=== PATIENT | male | born 1955 | race Hispanic/Latino ===

== ENCOUNTER 2017-05-09 19:20 | Inpatient (IN) | payer MEDICARE, MEDICAID ==
[2017-05-09] MEDS ORDERED: Sodium Chloride 0.9% 1,000 ML IV SCH (20:00)
[2017-05-09 20:37] LABS: ADD MANUAL DIFF? NO
[2017-05-09 20:40] LABS: VENOUS BLOOD GAS BASE EXCESS 3.3 mmol/L (0.0-2.0); VENOUS BLOOD PH 7.41 (7.32-7.43)
[2017-05-09 20:45] LABS: BASO # 0.02 K/mm3 (0.0-2.0); BASO % 0.3 % (0.0-3.0); GRAN # 4.65 (1.4-6.5); GRAN % 68.6 % (50.0-68.0); HEMATOCRIT 33.5 % (42.0-52.0); LYMPH % 14.9 % (22.0-35.0); MEAN CELL VOLUME 96.5 fL (80.0-105.0); MEAN CORPUSCULAR HEMOGLOBIN 33.4 pg (25.0-35.0); MEAN CORPUSCULAR HGB CONC 34.6 g/dl (31.0-37.0); MEAN PLATELET VOLUME 9.9 fl (7.0-11.0); MONO # 1.1 (0.1-0.6); MONO % 16.2 % (1.0-6.0); PLATELET COUNT 75 10^3/uL (120.0-450.0); RED CELL DISTRIBUTION WIDTH 13.6 % (11.5-14.5); WHITE BLOOD COUNT 6.8 10^3/ul (4.5-11.0)
[2017-05-09 20:51] LABS: ALB/GLOB RATIO 0.7 (1.1-1.8); ALKALINE PHOSPHATASE 132 U/L (38-133); ALT/SGPT 41 U/L (7-56); AST/SGOT 90 U/L (15-59); BILIRUBIN,TOTAL 0.9 mg/dL (0.2-1.3); BLOOD UREA NITROGEN 18 mg/dL (7-21); CALCIUM 8.1 mg/dL (8.4-10.5); CARBON DIOXIDE 27 mmol/L (21-33); CHLORIDE 100 mmol/L (95-110); GFR AFRICAN-AMERICAN 33; GLUCOSE,RANDOM 123 mg/dL (70-110); INR 1.12 (0.93-1.08); MAGNESIUM 1.7 mg/dL (1.7-2.2); PARTIAL THROMBOPLASTIN TIME 30.3 Seconds (23.7-30.8); POTASSIUM 3.9 mmol/L (3.6-5.0); SODIUM 136 mmol/L (132-148); TOTAL PROTEIN 7.5 g/dL (5.8-8.3)
[2017-05-09 20:52] LABS: PHOSPHOROUS 1.3 mg/dL (2.5-4.5)
[2017-05-09 21:02] LABS: TROPONIN I < 0.01 ng/mL
--- NOTE | 2017-05-09 21:04 | ED PDOC ---
Arrival/HPI - General Chief Complaint: Fever Time Seen by Provider: 05/09/17 19:49 Historian: Patient - History of Present Illness Narrative History of Present Illness (Text): 05/09/17 19:50 Wesley Carroll is a 62 year old male, whose past medical history includes chronic renal failure and HIV, who presents to the Emergency department complaining of fever for past couple of days. Patient's partner reports associated periods of confusion. Patient was dialyzed yesterday and states he is dialyzed twice a week. Patient reports fever as high as 103 at home with chills. Patient states he is not confused currently. Patient is awake, alert, and denies any cough, abdominal pain, nausea, vomiting, diarrhea, urinary symptoms, back pain, neck pain, or any other complaints. Symptom Onset: Gradual Symptom Course: Unchanged Activities at Onset: Rest, Light Context: Home Past Medical History - Provider Review Nursing Documentation Reviewed: Yes - Hematological/Oncological Hx AIDS: (HIV pos only) - Psychiatric Hx Substance Use: No Family/Social History - Physician Review Nursing Documentation Reviewed: Yes Family/Social History: Unknown Family HX Smoking Status: n Hx Alcohol Use: No Hx Substance Use: No Allergies/Home Meds Allergies/Adverse Reactions: Allergies No Known Allergies Allergy (Verified 05/09/17 19:46) Review of Systems - Physician Review All systems were reviewed & negative as marked: Yes - Review of Systems Constitutional: Fevers, Other (+chills) Eyes: Normal ENT: Normal Respiratory: Normal. absent: SOB, Cough Cardiovascular: Normal. absent: Chest Pain Gastrointestinal: Normal. absent: Abdominal Pain, Diarrhea, Nausea, Vomiting Genitourinary Male: Normal. absent: Dysuria, Frequency, Hematuria, Urinary Output Changes Musculoskeletal: Normal. absent: Back Pain Skin: Normal Neurological: Other (+confusion). absent: Headache, Dizziness Endocrine: Normal Hemo/Lymphatic: Normal Psychiatric: Normal Physical Exam Vital Signs Reviewed: Yes Vital Signs Temp Pulse Resp BP Pulse Ox 05/10/17 00:30 102.3 F H 97 H 16 143/78 99 05/09/17 20:36 101 F H 05/09/17 19:41 101.1 F H 97 H 18 142/71 99 Temperature: Febrile Blood Pressure: Normal Pulse: Regular Respiratory Rate: Normal Appearance: Positive for: Well-Appearing, Non-Toxic, Comfortable Pain Distress: None Mental Status: Positive for: Alert and Oriented X 3 - Systems Exam Head: Present: Atraumatic, Normocephalic Pupils: Present: PERRL Extroacular Muscles: Present: EOMI Conjunctiva: Present: Normal Mouth: Present: Moist Mucous Membranes Neck: Present: Normal Range of Motion Respiratory/Chest: Present: Clear to Auscultation, Good Air Exchange. No: Respiratory Distress, Accessory Muscle Use Cardiovascular: Present: Regular Rate and Rhythm, Normal S1, S2. No: Murmurs Abdomen: Present: Normal Bowel Sounds. No: Tenderness, Distention, Peritoneal Signs Back: Present: Normal Inspection Upper Extremity: Present: Normal Inspection, Normal ROM, NORMAL PULSES, Other ( Left upper arm fistula noted, appears normal, no signs of infection). No: Cyanosis, Edema, Tenderness, Swelling, Erythema Lower Extremity: Present: Normal Inspection. No: Edema Neurological: Present: GCS=15, CN II-XII Intact, Speech Normal Skin: Present: Warm, Dry, Normal Color. No: Rashes Psychiatric: Present: Alert, Oriented x 3, Normal Insight, Normal Concentration Medical Decision Making ED Course and Treatment: 05/09/17 19:50 Impression: 62 year old male complaining of fever, chills, and periods of confusion over past couple of days. Plan: -- EKG -- CXR -- Labs, VBG, troponin, blood cultures -- UA, urine cultures -- IV fluids -- Tylenol -- Reassess and disposition Progress Notes: 05/09/17 22:49 Reviewed EKG, NSR at [address]-segment elevations or depressions, no T-wave inversions, normal intervals. 05/09/17 23:53 Reviewed radiology, Chest X-ray shows no acute processes. 05/10/17 00:13 Case discussed with medical aides teacher, who is aware and agrees with plan. 05/10/17 00:[address] Ramirez, who is aware and agrees with plan. Accepts pt in to hospitalist service. Pt will go to [facility] observation for fever and SIRS. - Lab Interpretations Lab Results: 05/09/17 20:28 05/09/17 20:28 Lab Results 05/09/17 20:28: Sodium 136, Chloride 100, Potassium 3.9, Carbon Dioxide 27, Anion Gap 13, BUN 18, Creatinine 2.4 H, Est GFR ( Amer) 33, Est GFR (Non- Af Amer) 28, Random Glucose 123 H, Calcium 8.1 L, Phosphorus 1.3 L*, Magnesium 1.7, Total Bilirubin 0.9, AST 90 H, ALT 41, Alkaline Phosphatase 132, Troponin I < 0.01, Total Protein 7.5, Albumin 3.1, Globulin 4.5, Albumin/Globulin Ratio 0.7 L 05/09/17 20:28: pO2 36, VBG pH 7.41, VBG pCO2 45.0, VBG HCO3 28.5 H, VBG Total CO2 29.9 H, VBG O2 Sat (Calc) 73.3 H, VBG Base Excess 3.3 H, VBG Potassium 3.9, Sodium 136.0, Chloride 102.0, Glucose 129 H, Lactate 1.2, FiO2 21.0, Venous Blood Potassium 3.9 05/09/17 20:28: PT 12.1 H, INR 1.12 H, APTT 30.3 05/09/17 20:28: WBC 6.8, RBC 3.47 L, Hgb 11.6 L, Hct 33.5 L, MCV 96.5, MCH 33.4 , MCHC 34.6, RDW 13.6, Plt Count 75 L, MPV 9.9, Gran % 68.6 H, Lymph % (Auto) 14.9 L, Edgar % (Auto) 16.2 H, Eos % (Auto) 0.0 L, Baso % (Auto) 0.3, Gran # 4.65 , Lymph # 1.0 L, Edgar # 1.1 H, Eos # 0.0, Baso # 0.02 - RAD Interpretation Radiology Orders: 05/09/17 19:50 CHEST PORTABLE [RAD] Stat - Medication Orders Current Medication Orders: Acetaminophen (Tylenol 325mg Tab) 650 mg PO STAT STA Stop: 05/10/17 00:42 Sodium Chloride (Sodium Chloride 0.9%) 1,000 mls @ 150 mls/hr IV .[id number] [facility] Last Admin: 05/09/17 20:36 Dose: 150 mls/hr Discontinued Medications Acetaminophen (Tylenol 325mg Tab) 650 mg PO STAT STA Stop: 05/09/17 19:53 Last Admin: 05/09/17 20:36 Dose: 650 mg Acetaminophen (Tylenol 325mg Tab) Confirm Administered Dose 650 mg .ROUTE .STK- MED ONE Stop: 05/10/17 00:42 Vancomycin HCl (Vancomycin 1gm) 1 gm in 250 mls @ 133.333 mls/hr IVPB STAT STA PRN Reason: Protocol Stop: 05/09/17 23:53 Last Admin: 05/09/17 23:42 Dose: 133.333 mls/hr Potassium Phos/Sodium Phos (Neutra-Phos) 1 pkt PO ONCE ONE Stop: 05/09/17 21:25 Last Admin: 05/09/17 23:42 Dose: 1 pkt - Scribe Statement The provider has reviewed the documentation as recorded by the Scribjuan Salas All medical record entries made by the Scribe were at my direction and personally dictated by me. I have reviewed the chart and agree that the record accurately reflects my personal performance of the history, physical exam, medical decision making, and the department course for this patient. I have also personally directed, reviewed, and agree with the discharge instructions and disposition. Disposition/Present on Arrival - Present on Arrival Any Indicators Present on Arrival: No History of DVT/PE: No History of Uncontrolled Diabetes: No Urinary Catheter: No History of Decub. Ulcer: No History Surgical Site Infection Following: None - Disposition Have Diagnosis and Disposition been Completed?: Yes Diagnosis: ESRD (end stage renal disease), Fever, SIRS (systemic inflammatory response syndrome) Disposition: HOSPITALIZED Disposition Time: 00:12 Patient Plan: Observation Patient Problems: Current Active Problems Problem Status Onset ESRD (end stage renal disease) Acute Fever Acute SIRS (systemic inflammatory response syndrome) Acute Condition: GOOD Referrals: Aldo Spencer MD [Primary Care Provider] - Follow up with primary Forms: [employer] (Swedish)
[2017-05-09] MEDS ORDERED: Potassium & Sodium Phosphate PO ONE (21:24)
[2017-05-09] MEDS ORDERED: Vancomycin 1gm in NS 250ml 1 GM/250 ML BAG IVPB STA (22:01)
[2017-05-10] MEDS ORDERED: Potassium Phosphate 15 MMOLE in Sodium Chloride 0.9% 250 ML IVPB ONE ×2 (01:25→18:45)
[2017-05-10] MEDS ORDERED: Sodium Chloride 0.9% 1,000 ML IV SCH (01:30)
--- NOTE | 2017-05-10 02:00 | CP.PCM.HP ---
<REZA BURCH - Last Filed: 05/10/17 01:55> History of Present Illness - History of Present Illness History of Present Illness: Pt is a 62 yo M with PMHx of ESRD on HD (,) and HIV presents with cc of fever for the last 4 days. Pt states that his temperature has ranged between 101 and 103 F at home. Pt also c/o nausea, vomiting x2, diarrhea, and chills. Pt has not been able to tolerate diet for the last 2 days. Pt denied any tarry stools or hematochezia. Pt states that on Sunday he had a near syncopal episode. He states that he had a witnessed fall, in which he fell on his knees and elbow, but did not sustain head trauma or seizure. Pt denies any past history in which he lost consciousness. Pt admits that the day of the near syncopal episode he felt dehydrated and fatigued from being ill. Pt denied any recent travel or sick contacts. Pt denied dizziness, ear pain, sore throat, congestion, sinus pain, cough, CP, SOB, weakness, abdominal pain, constipation, dysuria, hematuria, or any skin lesions/rashes. Pt states that he is compliant with all of his medications and follows up regularly with PMD. PMHx: ESRD on HD (, ), HIV Surg: AV fistula left forearm FHx: AR All: NKDA SH: Occasional EtOH, Denied tobacco or illicit drug use Medications: Reviewed and as per chart Present on Admission - Present on Admission Any Indicators Present on Admission: No Review of Systems - Review of Systems All systems: reviewed and no additional remarkable complaints except - Constitutional Constitutional: Chills, Fatigue, Fever. absent: Headache, Night Sweats, Weight Gain, Weight Loss - EENT Eyes: absent: Blurred Vision, Change in Vision Ears: absent: Ear Discharge, Ear Pain, Tinnitus Nose/Mouth/Throat: absent: Nasal Congestion, Nasal Discharge, Dysphagia, Sore Throat, Throat Swelling, Tongue Swelling - Cardiovascular Cardiovascular: Rapid Heart Rate. absent: Chest Pain, Edema, Orthopnea, Palpitations - Respiratory Respiratory: absent: Dyspnea, Chest Congestion - Gastrointestinal Gastrointestinal: Diarrhea, Loose Stools, Nausea, Vomiting. absent: Abdominal Pain, Hematemesis, Hematochezia, Melena - Genitourinary Genitourinary: absent: Dysuria, Hematuria, Pyuria - Musculoskeletal Musculoskeletal: absent: Arthralgias, Joint Swelling, Muscle Weakness, Myalgias , Numbness - Integumentary Integumentary: Dry Skin. absent: Erythema, Rash, Swelling, Jaundice - Neurological Neurological: absent: Dizziness, Numbness, Focal Weakness, Headaches, Paresthesias - Psychiatric Psychiatric: absent: Confusion - Endocrine Endocrine: absent: Cold Intolorance, Excessive Sweating, Heat Intolorance, Polydipsia, Polyphagia, Polyuria - Hematologic/Lymphatic Hematologic: absent: Easy Bleeding, Easy Bruising, Lymphadenopathy Past Patient History - Past Social History Smoking Status: n - HEMATOLOGICAL/ONCOLOGICAL Hx AIDS: (HIV pos only) - PSYCHIATRIC Hx Substance Use: No Meds Allergies/Adverse Reactions: Allergies Allergy/AdvReac Type Severity Reaction Status Date / Time No Known Allergies Allergy Verified 05/09/17 19:46 Physical Exam - Constitutional Appears: No Acute Distress - Head Exam Head Exam: ATRAUMATIC, NORMOCEPHALIC - Eye Exam Eye Exam: EOMI, PERRL - ENT Exam ENT Exam: Mucous Membranes Moist, Normal External Ear Exam, Normal Oropharynx Additional comments: Negative Power-Hallpike test - Neck Exam Neck exam: Positive for: Full Rom. Negative for: Lymphadenopathy, Tenderness, Thyromegaly Additional comments: No carotid bruits b/l - Respiratory Exam Respiratory Exam: Clear to Auscultation Bilateral. absent: Rales, Rhonchi, Wheezes - Cardiovascular Exam Cardiovascular Exam: Tachycardia, REGULAR RHYTHM, +S1, +S2. absent: Diastolic murmur, Gallop, Rubs, Systolic Murmur - GI/Abdominal Exam GI & Abdominal Exam: Soft. absent: Distended, Guarding, Rebound, Tenderness - Extremities Exam Extremities exam: Positive for: full ROM. Negative for: joint swelling, pedal edema, tenderness Additional comments: Left forearm AV fistula with palpable thrill and audible bruits - Neurological Exam Neurological exam: Alert, CN II-XII Intact, Oriented x3 - Psychiatric Exam Psychiatric exam: Normal Affect, Normal Mood - Skin Skin Exam: Dry, Intact, Normal Color, Warm Results - Vital Signs Recent Vital Signs: Last Vital Signs Temp 100.7 F H 05/10/17 01:34 Pulse 109 H 05/10/17 01:34 Resp 18 05/10/17 01:34 BP 127/89 05/10/17 01:34 Pulse Ox 98 05/10/17 01:34 - Labs Result Diagrams: 05/09/17 20:28 05/09/17 20:28 Assessment & Plan - Assessment and Plan (Free Text) Assessment: 62 yo M with PMHx of ESRD on HD and HIV will be admitted for evaluation and treatment for Fever of unknown origin. 1. Febrile Illness - ID consulted - Vancomycin given in ED - F/u blood and urine cultures - F/u flu swab - F/u c. diff study - F/u TSH - F/u Hepatitis panel - NPO on NS@125, advance diet as tolerated - EKG showed tachycardia otherwise NSR - CXR showed no acute disease - UA unremarkable - Tylenol prn for fever 2. Hypophosphatemia - Phos 1.3, repleted with Neutra-phos - Trend Phos, replete as necessary 3. HIV - Cont home meds: Sustiva, Emtriva, Viread 4. ESRD - Cont HD, Tues and Thurs - Avoid nephrotoxic medications 5. GI/DVT PPx - Protonix - SCDs Pt was seen and discussed in detail with Dr. Ramirez. <Papito Ramirez - Last Filed: 05/10/17 03:19> Results - Vital Signs Recent Vital Signs: Last Vital Signs Temp 99.8 F H 05/10/17 02:08 Pulse 95 H 05/10/17 02:08 Resp 18 05/10/17 02:08 BP 126/78 05/10/17 02:08 Pulse Ox 98 05/10/17 01:57 - Labs Result Diagrams: 05/09/17 20:28 05/09/17 20:28 Labs: Laboratory Results - last 24 hr 05/10/17 01:15 Urine Color Yellow Urine Appearance Sl cloudy Urine pH 8.0 Ur Specific [place] 1.015 Urine Protein 100 H Urine Glucose (UA) Negative Urine Ketones Trace H Urine Blood Small H Urine Nitrate Negative Urine Bilirubin Negative Urine Urobilinogen 2.0 H Ur Leukocyte Esterase Negative Urine RBC 1 - 3 Urine WBC 0 - 2 Ur Epithelial Cells 1 - 3 Urine Bacteria Rare Attending/Attestation - Attestation I have personally seen and examined this patient.: Yes I have fully participated in the care of the patient.: Yes I have reviewed all pertinent clinical information: Yes Notes (Text): 05/10/17 03:18 Agree with history , physical examination , assessment and plan.Patient was seen when he was in the ER in Room # 9.
[2017-05-10 02:02] LABS: URINE BILIRUBIN NEGATIVE (NEGATIVE); URINE BLOOD SMALL (NEGATIVE); URINE GLUCOSE (UA) NEGATIVE (NEGATIVE); URINE KETONE TRACE mg/dL (NEGATIVE); URINE LEUKOCYTE ESTERASE NEGATIVE Leu/uL (NEGATIVE); URINE PROTEIN 100 mg/dL (<30 mg/dL)
[2017-05-10 02:05] LABS: URINE APPEARANCE SL CLOUDY (CLEAR); URINE COLOR YELLOW (YELLOW)
[2017-05-10 02:15] LABS: URINE BACTERIA RARE (NEG); URINE WBC 0 - 2 /hpf (0-6)
[2017-05-10 02:26] VITALS: BMI 25.3
[2017-05-10] MEDS ORDERED: TDAP Vaccine 0.5 mL Syr IM ONE (05:58)
--- NOTE | 2017-05-10 05:59 | CP.PCM.PN ---
<REZA BURCH - Last Filed: 05/10/17 05:55> Subjective - Date & Time of Evaluation Date of Evaluation: 05/10/17 Time of Evaluation: 05:56 - Subjective Subjective: SENIOR CLINICAL DATA COORDINATOR note: Code star was called at 5:43. Per nurse patient was trying to go to the bathroom when fall occurred. The fall was not witnessed. Pt was found have a contusion and laceration to the right frontal region of his head. Pt was awake, but was confused and not responsive to questioning. Pt will be sent for stat CT head scan. Vitals T 99.7, HR 114, BP 146/93, O2 93%, Glucose 129 Objective - Vital Signs/Intake and Output Vital Signs (last 24 hours): Temp Pulse Resp BP Pulse Ox 99.8 F H 95 H 18 126/78 98 05/10/17 02:08 05/10/17 02:08 05/10/17 02:08 05/10/17 02:08 05/10/17 01:57 - Medications Medications: Current Medications Acetaminophen (Tylenol 325mg Tab) 650 mg PO Q6H PRN PRN Reason: Fever >100.4 F Efavirenz (Sustiva) 600 mg PO HS [facility] Sodium Chloride (Sodium Chloride 0.9%) 1,000 mls @ 150 mls/hr IV .Q6H40M [facility] Last Admin: 05/09/17 20:36 Dose: 150 mls/hr Sodium Chloride (Sodium Chloride 0.9%) 1,000 mls @ 125 mls/hr IV .Q8H [facility] Last Admin: 05/10/17 01:41 Dose: 125 mls/hr Non-Formulary Medication (Emtricitabine [Emtriva]) 200 mg PO 2XW [facility] Pantoprazole Sodium (Protonix Inj) 40 mg IVP DAILY [facility] Tenofovir Disoproxil Fumarate (Viread) 300 mg PO MON [facility] - Labs Labs: PT 12.1 Seconds (9.9-11.8) H 05/09/17 20:28 INR 1.12 (0.93-1.08) H 05/09/17 20:28 APTT 30.3 Seconds (23.7-30.8) 05/09/17 20:28 - Constitutional Appears: Confused - Head Exam Head Exam: NORMOCEPHALIC. absent: ATRAUMATIC Additional comments: Contusion and laceration to right frontal region - Eye Exam Eye Exam: EOMI, PERRL - ENT Exam ENT Exam: Mucous Membranes Dry - Neck Exam Neck Exam: Full ROM. absent: Lymphadenopathy, Thyromegaly - Respiratory Exam Respiratory Exam: Clear to Ausculation Bilateral. absent: Rales, Rhonchi, Wheezes - Cardiovascular Exam Cardiovascular Exam: RRR, +S1, +S2. absent: Gallop, Rubs, Murmur - GI/Abdominal Exam GI & Abdominal Exam: Soft. absent: Guarding, Tenderness, Organomegaly, Rebound - Neurological Exam Neurological Exam: Altered, Awake. absent: Oriented x3 - Skin Skin Exam: Abrasion, Dry, Normal Color, Warm Assessment and Plan - Assessment and Plan (Free Text) Assessment: 62 yo M with PMHx ESRD on HD and HIV had code star called for unwitnessed fall in bathroom. Pt hit head. 1. Fall - Head CT - Troponin - EKG Pt seen and discussed in detail with Dr. Ramirez. <Papito Ramirez - Last Filed: 05/10/17 10:19> Objective - Vital Signs/Intake and Output Vital Signs (last 24 hours): Temp Pulse Resp BP Pulse Ox 103.3 F H 112 H 18 153/93 H 98 05/10/17 08:49 05/10/17 08:49 05/10/17 08:49 05/10/17 08:49 05/10/17 08:49 Intake and Output: 05/10/17 05/10/17 06:59 18:59 Intake Total 0 Balance 0 - Medications Medications: Current Medications Acetaminophen (Tylenol 325mg Tab) 650 mg PO Q6H PRN PRN Reason: Fever >100.4 F Last Admin: 05/10/17 08:00 Dose: 650 mg Efavirenz (Sustiva) 600 mg PO HS [facility] Folic Acid (Folic Acid) 1 mg PO DAILY [facility] Sodium Chloride (Sodium Chloride 0.9%) 1,000 mls @ 70 mls/hr IV .[id number] [facility] Non-Formulary Medication (Emtricitabine [Emtriva]) 200 mg PO MoWe [facility] Pantoprazole Sodium (Protonix Inj) 40 mg IVP DAILY [facility] Tenofovir Disoproxil Fumarate (Viread) 300 mg PO MON [facility] Thiamine HCl (Vitamin B1 Tab) 50 mg PO DAILY [facility] - Labs Labs: PT 12.1 Seconds (9.9-11.8) H 05/09/17 20:28 INR 1.12 (0.93-1.08) H 05/09/17 20:28 APTT 30.3 Seconds (23.7-30.8) 05/09/17 20:28 Attending/Attestation - Attestation I have personally seen and examined this patient.: Yes I have fully participated in the care of the patient.: Yes I have reviewed all pertinent clinical information, including history, physical exam and plan: Yes
--- NOTE | 2017-05-10 07:02 | CT ---
EXAM: CT Head Without Intravenous Contrast CLINICAL HISTORY: 62 years old, male; Injury or trauma; Fall; Initial encounter; Concussion / head injury; Additional info: Code star, fall TECHNIQUE: Axial computed tomography images of the head/brain without intravenous contrast. This CT exam was performed using one or more of the following dose reduction techniques: automated exposure control, adjustment of the mA and/or kV according to patient size, and/or use of iterative reconstruction technique. EXAM DATE/TIME: 05/10/2017 5:48 AM COMPARISON: No relevant prior studies available. FINDINGS: Patient motion is present limiting exam. There is subcutaneous soft tissue swelling in the right frontal region. Atrophy and chronic small vessel ischemic disease. No intracranial hemorrhage. No intracranial edema. Trace mucosal thickening ethmoid sinuses. No depressed fractures. IMPRESSION: No acute intracranial injury.
[2017-05-10] MEDS ORDERED: Piperacillin/Tazobact 2.25gm 2.25 GM/100 ML BAG IVPB STA (08:17)
[2017-05-10 08:36] LABS: VENOUS BLOOD GAS BASE EXCESS 0.4 mmol/L (0.0-2.0); VENOUS BLOOD PH 7.51 (7.32-7.43)
--- NOTE | 2017-05-10 08:53 | PCM.RRTMUL ---
LUBRICATING ENGINEER Nurse Assessment - Vital Signs Blood Pressure:: 167/99 Pulse Rate:: 94 Respiratory Rate:: 20 Temperature:: 99.7 F
--- NOTE | 2017-05-10 09:28 | CP.PCM.PN ---
Subjective - Date & Time of Evaluation Date of Evaluation: 05/10/17 Time of Evaluation: 08:00 - Subjective Subjective: RAPID RESPONSE NOTE: Rapid Response was called for Wesley Carroll at 0800 on 05/10/2017 for altered mental status. 62 year old male with PMH of HIV and ESRD on HD who was admitted with fever and diarrhea was found to have an acute change in mental status by member of medicine team. Patient was noted to be alert and oriented to person, place, time and event prior to becoming confused and agitated. A stat fingerstick glucose and oral temperature were taken. Fingerstick glucose was found to be 148 and temperature was 103 degrees fahrenheit. 650mg of acetaminophen and cooling blankets were ordered. Blood pressure was 178/111 and pulse was 128 on presentation. A code sepsis was then called on this patient and patient was given a 500ml normal saline and started on Zosyn. A venous blood gas/shock panel was drawn and lactate was found to be 1.2. Objective - Vital Signs/Intake and Output Vital Signs (last 24 hours): Temp Pulse Resp BP Pulse Ox 103.3 F H 112 H 18 153/93 H 98 05/10/17 08:49 05/10/17 08:49 05/10/17 08:49 05/10/17 08:49 05/10/17 08:49 Intake and Output: 05/10/17 05/10/17 06:59 18:59 Intake Total 0 Balance 0 - Medications Medications: Current Medications Acetaminophen (Tylenol 325mg Tab) 650 mg PO Q6H PRN PRN Reason: Fever >100.4 F Last Admin: 05/10/17 08:00 Dose: 650 mg Efavirenz (Sustiva) 600 mg PO HS [facility] Folic Acid (Folic Acid) 1 mg PO DAILY [facility] Sodium Chloride (Sodium Chloride 0.9%) 1,000 mls @ 70 mls/hr IV .[id number] [facility] Piperacillin Sod/Tazobactam Sod (Zosyn 2.25 Gm In 0.9% 100 Ml) 2.25 gm in 100 mls @ 100 mls/hr IVPB STAT STA PRN Reason: Protocol Stop: 05/10/17 09:16 Last Admin: 05/10/17 08:30 Dose: 100 mls/hr Non-Formulary Medication (Emtricitabine [Emtriva]) 200 mg PO MoWe [facility] Pantoprazole Sodium (Protonix Inj) 40 mg IVP DAILY [facility] Tenofovir Disoproxil Fumarate (Viread) 300 mg PO MON [facility] Thiamine HCl (Vitamin B1 Tab) 50 mg PO DAILY [facility] - Labs Labs: PT 12.1 Seconds (9.9-11.8) H 05/09/17 20:28 INR 1.12 (0.93-1.08) H 05/09/17 20:28 APTT 30.3 Seconds (23.7-30.8) 05/09/17 20:28 - Constitutional Appears: In Acute Distress - Neck Exam Neck Exam: Full ROM - Respiratory Exam Respiratory Exam: absent: Rhonchi, Wheezes, Respiratory Distress - Cardiovascular Exam Cardiovascular Exam: Tachycardia - GI/Abdominal Exam GI & Abdominal Exam: absent: Tenderness - Extremities Exam Extremities Exam: Normal Capillary Refill. absent: Pedal Edema - Neurological Exam Neurological Exam: Altered - Psychiatric Exam Psychiatric exam: Agitated, Anxious - Skin Skin Exam: Diaphoretic, Warm Assessment and Plan - Assessment and Plan (Free Text) Plan: 1. Sepsis with unknown source -cont zosyn -cont acetaminophen PRN and cooling blankets PRN for temperatures above 100 degrees Fahrenheit -f/u cultures -lacate 1.2 2. Agitation -PRN ativan
--- NOTE | 2017-05-10 09:33 | PCM.SEPTIC ---
Sepsis Progress Note - Reassessment Type Date of Evaluation: 05/10/17 Time of Evaluation: 08:13 Reassessment Type: Non-invasive reassessment - Non Invasive Reassessment Were the most recent vital sign reviewed: Yes Vital Sign (Latest): Temp Pulse Resp BP Pulse Ox 103.3 F H 112 H 18 153/93 H 98 05/10/17 08:49 05/10/17 08:49 05/10/17 08:49 05/10/17 08:49 05/10/17 08:49 Cardiovascular: Yes: Tachycardia Respiratory: Yes: Normal Breath Sounds. No: Accessory Muscle Use, Rales, Rhonchi, Stridor Capillary Refill: Normal (Less than 2 sec) Skin: Warm, Diaphoretic
[2017-05-10] MEDS ORDERED: Home Med 1 UNIT PO SCH (10:00)
--- NOTE | 2017-05-10 10:37 | RAD ---
HISTORY: Sepsis Patient COMPARISON: No prior. FINDINGS: LUNGS: No active pulmonary disease. PLEURA: No significant pleural effusion identified, no pneumothorax apparent. CARDIOVASCULAR: Normal. OSSEOUS STRUCTURES: No significant abnormalities. VISUALIZED UPPER ABDOMEN: Normal. OTHER FINDINGS: None. IMPRESSION: No active disease.
--- NOTE | 2017-05-10 11:02 | CARD ---
APPROVED REPORT EKG Measurement Heart [id number] [place] [id number] <Conclusion> Sinus tachycardia Nonspecific ST abnormality Abnormal ECG
--- NOTE | 2017-05-10 11:07 | CARD ---
APPROVED REPORT EKG Measurement Heart [id number] [place] [id number] <Conclusion> Normal sinus rhythm Normal ECG
[2017-05-10] MEDS: Sodium Chloride 0.9% 1,000 ML IV SCH (12:16)
[2017-05-10 17:11] LABS: ADD MANUAL DIFF? NO
[2017-05-10 17:30] LABS: BASO # 0.02 K/mm3 (0.0-2.0); BASO % 0.3 % (0.0-3.0); GRAN # 5.97 (1.4-6.5); GRAN % 77.5 % (50.0-68.0); HEMATOCRIT 30.6 % (42.0-52.0); LYMPH # 0.6 (1.2-3.4); LYMPH % 7.2 % (22.0-35.0); MEAN CELL VOLUME 94.4 fL (80.0-105.0); MEAN CORPUSCULAR HEMOGLOBIN 33.6 pg (25.0-35.0); MEAN CORPUSCULAR HGB CONC 35.6 g/dl (31.0-37.0); MEAN PLATELET VOLUME 9.7 fl (7.0-11.0); MONO # 1.2 (0.1-0.6); PLATELET COUNT 82 10^3/uL (120.0-450.0); RED CELL DISTRIBUTION WIDTH 13.5 % (11.5-14.5); WHITE BLOOD COUNT 7.7 10^3/ul (4.5-11.0)
[2017-05-10 17:40] LABS: ALB/GLOB RATIO 0.7 (1.1-1.8); BILIRUBIN,TOTAL 1.2 mg/dL (0.2-1.3); CALCIUM 7.6 mg/dL (8.4-10.5); MAGNESIUM 1.4 mg/dL (1.7-2.2); TOTAL PROTEIN 7.3 g/dL (5.8-8.3)
[2017-05-10 17:54] LABS: POTASSIUM 2.8 mmol/L (3.6-5.0)
[2017-05-10] MEDS ORDERED: Potassium Phosphate 3 mmol/ml Inj IV STA (18:32)
--- NOTE | 2017-05-10 19:44 | PCM.SEPTIC ---
Sepsis Progress Note - Reassessment Type Date of Evaluation: 05/10/17 Time of Evaluation: 14:15 Reassessment Type: Non-invasive reassessment - Non Invasive Reassessment Were the most recent vital sign reviewed: Yes Vital Sign (Latest): Temp Pulse Resp BP Pulse Ox 96.3 F L 116 H 20 164/99 H 98 05/10/17 17:23 05/10/17 17:23 05/10/17 17:23 05/10/17 17:23 05/10/17 08:49 Cardiovascular: Yes: Tachycardia. No: JVD, Murmur, Irregularly Irregular Respiratory: Yes: Normal Breath Sounds. No: Crackles, Rales, Rhonchi Capillary Refill: Normal (Less than 2 sec) Skin: Warm, Dry
[2017-05-10] MEDS ORDERED: Magnesium Sulfate 2 GM in Sodium Chloride 0.9% 100 ML IVPB ONE (20:02)
--- NOTE | 2017-05-10 20:14 | CP.PCM.CON ---
History of Present Illness - History of Present Illness History of Present Illness: pt is seen and examined during dialysis s/p Hd x2 hrs pt pulled out needles x1 and after 2 hrs he was restless, got out of bed and try to pull needles and want to stand and void + loose bm on the floor 1. sepsis 2. ESRD 3. HIV 4. Hept.c 5. Hypokalemia 6. Hypomagnesemia 7. Hypophosphatemia supplement mg 2gm ivpb, repeat bmp, mg, po4, cpk supplement k+, po4 as needed check 24 hr up,cr,cr cl,u/s kidneys consider LP to r/o meningitis, consider neurology consult c/w iv abx, stool c.diff u/s kidneys for size consider gentle iv hydration, consider echo for lvef full consult is dictated # [id number] Past Patient History - Past Social History Smoking Status: n - RENAL Hx Chronic Kidney Disease: Yes Hx Dialysis: Yes Date of Last Dialysis Treatment: 05/08/17 Hx Renal Failure: Yes - HEMATOLOGICAL/ONCOLOGICAL Hx AIDS: (HIV pos only) - MUSCULOSKELETAL/RHEUMATOLOGICAL Hx Arthritis: Yes Hx Back Pain: Yes Hx Falls: Yes - GENITOURINARY/GYNECOLOGICAL Hx Sexually Transmitted Disorders: Yes Hx Urinary Tract Infection: Yes - PSYCHIATRIC Hx Substance Use: No - SURGICAL HISTORY Hx Surgeries: Yes Meds Allergies/Adverse Reactions: Allergies Allergy/AdvReac Type Severity Reaction Status Date / Time No Known Allergies Allergy Verified 05/09/17 19:46 - Medications Medications: Current Medications Acetaminophen (Tylenol 325mg Tab) 650 mg PO Q6H PRN PRN Reason: Fever >100.4 F Last Admin: 05/10/17 15:56 Dose: 650 mg Efavirenz (Sustiva) 600 mg PO [facility] Folic Acid (Folic Acid) 1 mg PO DAILY [facility] Last Admin: 05/10/17 10:17 Dose: 1 mg Sodium Chloride (Sodium Chloride 0.9%) 1,000 mls @ 70 mls/hr IV .[id number] [facility] Last Admin: 05/10/17 12:16 Dose: 70 mls/hr Potassium Phosphate 15 mmole/ (Sodium Chloride) 255 mls @ 42.5 mls/hr IVPB ONCE ONE Stop: 05/11/17 00:44 Magnesium Sulfate 2 gm/ Sodium (Chloride) 104 mls @ 102 mls/hr IVPB ONCE ONE Stop: 05/10/17 21:03 Lorazepam (Ativan) 0.5 mg PO Q4 [facility] PRN Reason: Protocol Last Admin: 05/10/17 17:02 Dose: Not Given Non-Formulary Medication (Emtricitabine [Emtriva]) 200 mg PO MoWe [facility] Pantoprazole Sodium (Protonix Inj) 40 mg IVP DAILY [facility] Last Admin: 05/10/17 10:17 Dose: 40 mg Tenofovir Disoproxil Fumarate (Viread) 300 mg PO MON [facility] Thiamine HCl (Vitamin B1 Tab) 50 mg PO DAILY [facility] Last Admin: 05/10/17 10:17 Dose: 50 mg Results - Vital Signs Recent Vital Signs: Last Vital Signs Temp 96.3 F L 05/10/17 17:23 Pulse 116 H 05/10/17 17:23 Resp 20 05/10/17 17:23 BP 164/99 H 05/10/17 17:23 Pulse Ox 98 05/10/17 08:49 - Labs Result Diagrams: 05/10/17 17:00 05/10/17 20:00 Labs: Laboratory Results - last 24 hr 05/10/17 05/10/17 17:00 17:00 WBC 7.7 RBC 3.24 L Hgb 10.9 L Hct 30.6 L MCV 94.4 MCH 33.6 MCHC 35.6 RDW 13.5 Plt Count 82 L MPV 9.7 Gran % 77.5 H Lymph % (Auto) 7.2 L [place] % (Auto) 15.0 H Eos % (Auto) 0.0 L Baso % (Auto) 0.3 Gran # 5.97 Lymph # 0.6 L [place] # 1.2 H Eos # 0.0 Baso # 0.02 Sodium 134 Potassium 2.8 L* D Chloride 104 Carbon Dioxide 18 L Anion Gap 15 BUN 20 Creatinine 2.3 H Est GFR ( Amer) 35 Est GFR (Non-Af Amer) 29 Random Glucose 133 H Calcium 7.6 L Phosphorus 1.0 L* Magnesium 1.4 L Total Bilirubin 1.2 AST 87 H ALT 37 Alkaline Phosphatase 117 Total Protein 7.3 Albumin 3.0 Globulin 4.2 Albumin/Globulin Ratio 0.7 L
[2017-05-10 20:27] LABS: CALCIUM 8.6 mg/dL (8.4-10.5); MAGNESIUM 1.6 mg/dL (1.7-2.2); PHOSPHOROUS 1.7 mg/dL (2.5-4.5); POTASSIUM 3.3 mmol/L (3.6-5.0)
--- NOTE | 2017-05-10 20:39 | CP.PCM.CON ---
History of Present Illness - History of Present Illness History of Present Illness: Infectious Disease Consultation: May 10, 2017 62 yo male presenting with fevers for the past 4 days prior to hospitalization. Temperature was as high as 103.0 F. He had a near syncopal episode on Sunday. The patient was ESRD on HD and a history of HIV on HAART medications. No new issues. PMHx: ESRD on HD HIV PSHx: AV fistula left forearm Allergies: NKDA Social Hx: Social EtOH, No tobacco, No illicit drug use. Active Medications Acetaminophen (Tylenol 325mg Tab) 650 mg PO Q6H PRN PRN Reason: Fever >100.4 F Last Admin: 05/10/17 15:56 Dose: 650 mg Efavirenz (Sustiva) 600 mg PO HS [facility] Folic Acid (Folic Acid) 1 mg PO DAILY [facility] Last Admin: 05/10/17 10:17 Dose: 1 mg Sodium Chloride (Sodium Chloride 0.9%) 1,000 mls @ 70 mls/hr IV .[id number] [facility] Last Admin: 05/10/17 12:16 Dose: 70 mls/hr Potassium Phosphate 15 mmole/ (Sodium Chloride) 255 mls @ 42.5 mls/hr IVPB ONCE ONE Stop: 05/11/17 00:44 Magnesium Sulfate 2 gm/ Sodium (Chloride) 104 mls @ 102 mls/hr IVPB ONCE ONE Stop: 05/10/17 21:03 Lorazepam (Ativan) 0.5 mg PO Q4 [facility] PRN Reason: Protocol Last Admin: 05/10/17 17:02 Dose: Not Given Non-Formulary Medication (Emtricitabine [Emtriva]) 200 mg PO MoWe [facility] Pantoprazole Sodium (Protonix Inj) 40 mg IVP DAILY [facility] Last Admin: 05/10/17 10:17 Dose: 40 mg Tenofovir Disoproxil Fumarate (Viread) 300 mg PO MON [facility] Thiamine HCl (Vitamin B1 Tab) 50 mg PO DAILY [facility] Last Admin: 05/10/17 10:17 Dose: 50 mg Family Hx: History of IA in the family ROS: Fevers at home. nausea, vomiting, diarrhea, and chills. No chest pain, abdominal pain, melena, hematuria, hematemesis, hematochezia, depression, anxiety. Past Patient History - Past Social History Smoking Status: n - RENAL Hx Chronic Kidney Disease: Yes Hx Dialysis: Yes Date of Last Dialysis Treatment: 05/08/17 Hx Renal Failure: Yes - HEMATOLOGICAL/ONCOLOGICAL Hx AIDS: (HIV pos only) - MUSCULOSKELETAL/RHEUMATOLOGICAL Hx Arthritis: Yes Hx Back Pain: Yes Hx Falls: Yes - GENITOURINARY/GYNECOLOGICAL Hx Sexually Transmitted Disorders: Yes Hx Urinary Tract Infection: Yes - PSYCHIATRIC Hx Substance Use: No - SURGICAL HISTORY Hx Surgeries: Yes Meds Allergies/Adverse Reactions: Allergies Allergy/AdvReac Type Severity Reaction Status Date / Time No Known Allergies Allergy Verified 05/09/17 19:46 - Medications Medications: Current Medications Acetaminophen (Tylenol 325mg Tab) 650 mg PO Q6H PRN PRN Reason: Fever >100.4 F Last Admin: 05/10/17 15:56 Dose: 650 mg Efavirenz (Sustiva) 600 mg PO HS [facility] Folic Acid (Folic Acid) 1 mg PO DAILY [facility] Last Admin: 05/10/17 10:17 Dose: 1 mg Sodium Chloride (Sodium Chloride 0.9%) 1,000 mls @ 70 mls/hr IV .[id number] [facility] Last Admin: 05/10/17 12:16 Dose: 70 mls/hr Potassium Phosphate 15 mmole/ (Sodium Chloride) 255 mls @ 42.5 mls/hr IVPB ONCE ONE Stop: 05/11/17 00:44 Lorazepam (Ativan) 0.5 mg PO Q4 [facility] PRN Reason: Protocol Last Admin: 05/10/17 17:02 Dose: Not Given Non-Formulary Medication (Emtricitabine [Emtriva]) 200 mg PO MoWe [facility] Pantoprazole Sodium (Protonix Inj) 40 mg IVP DAILY [facility] Last Admin: 05/10/17 10:17 Dose: 40 mg Tenofovir Disoproxil Fumarate (Viread) 300 mg PO MON [facility] Thiamine HCl (Vitamin B1 Tab) 50 mg PO DAILY [facility] Last Admin: 05/10/17 10:17 Dose: 50 mg Physical Exam - Constitutional Appears: Non-toxic, No Acute Distress - Head Exam Head Exam: ATRAUMATIC, NORMOCEPHALIC - Eye Exam Eye Exam: EOMI, PERRL Pupil Exam: NORMAL ACCOMODATION, PERRL - ENT Exam ENT Exam: Mucous Membranes Moist, Normal External Ear Exam, TM's Normal Bilaterally - Neck Exam Neck exam: Positive for: Full Rom, Normal Inspection - Respiratory Exam Respiratory Exam: Clear to Auscultation Bilateral, NORMAL BREATHING PATTERN. absent: Rales, Rhonchi, Wheezes - Cardiovascular Exam Cardiovascular Exam: Tachycardia, +S1, +S2 - GI/Abdominal Exam GI & Abdominal Exam: Normal Bowel Sounds, Soft. absent: Distended, Tenderness - Extremities Exam Extremities exam: Positive for: full ROM, normal inspection Additional comments: Left forearm AV fistula with palpable thrill and audible bruits - Neurological Exam Neurological exam: Alert, CN II-XII Intact, Oriented x3 - Psychiatric Exam Psychiatric exam: Normal Affect, Normal Mood - Skin Skin Exam: Intact, Normal Color Results - Vital Signs Recent Vital Signs: Last Vital Signs Temp 96.3 F L 05/10/17 17:23 Pulse 116 H 05/10/17 17:23 Resp 20 05/10/17 17:23 BP 164/99 H 05/10/17 17:23 Pulse Ox 98 05/10/17 08:49 - Labs Result Diagrams: 05/10/17 17:00 05/10/17 17:00 Labs: Laboratory Results - last 24 hr 05/10/17 05/10/17 17:00 17:00 WBC 7.7 RBC 3.24 L Hgb 10.9 L Hct 30.6 L MCV 94.4 MCH 33.6 MCHC 35.6 RDW 13.5 Plt Count 82 L MPV 9.7 Gran % 77.5 H Lymph % (Auto) 7.2 L [place] % (Auto) 15.0 H Eos % (Auto) 0.0 L Baso % (Auto) 0.3 Gran # 5.97 Lymph # 0.6 L [place] # 1.2 H Eos # 0.0 Baso # 0.02 Sodium 134 Potassium 2.8 L* D Chloride 104 Carbon Dioxide 18 L Anion Gap 15 BUN 20 Creatinine 2.3 H Est GFR ( Amer) 35 Est GFR (Non-Af Amer) 29 Random Glucose 133 H Calcium 7.6 L Phosphorus 1.0 L* Magnesium 1.4 L Total Bilirubin 1.2 AST 87 H ALT 37 Alkaline Phosphatase 117 Total Protein 7.3 Albumin 3.0 Globulin 4.2 Albumin/Globulin Ratio 0.7 L Assessment & Plan - Assessment and Plan (Free Text) Assessment: 62 yo male with persistent fevers in history of HIV and ESRD on HD. The patient is taking Viread, Sustiva, and Emtriva for HAART. He states he is compliant with HAART. Supportive care. Continue on IV antibiotics of Zosyn at this time. Check CD4 and HIV Viral load. Carias cultures. Chest X-ray showed no acute disease. Possible UTI. CD4 would provide more guidance on possible sources of the patient's fever. Thank you for allowing me to participate in the care of the patient, we will follow with you.
[2017-05-10] MEDS ORDERED: Vancomycin 500mg in NS 500 MG/100 ML BAG IVPB STA (21:08)
[2017-05-10] MEDS: metroNIDAZOLE IV 500 mg/100 ml 500 MG/100 ML BAG IVPB SCH (21:41)
[2017-05-11] MEDS ORDERED: Piperacillin/Tazobact 2.25gm 2.25 GM/100 ML BAG IVPB SCH
[2017-05-11] MEDS: Sodium Chloride 0.9% 1,000 ML IV SCH ×2 (06:12→06:14)
[2017-05-11] MEDS: metroNIDAZOLE IV 500 mg/100 ml 500 MG/100 ML BAG IVPB SCH ×3 (06:13→22:03)
[2017-05-11 06:31] LABS: HEMATOCRIT 28.4 % (42.0-52.0); MEAN CELL VOLUME 95.6 fL (80.0-105.0); MEAN CORPUSCULAR HGB CONC 34.5 g/dl (31.0-37.0); MEAN PLATELET VOLUME 9.8 fl (7.0-11.0); RED CELL DISTRIBUTION WIDTH 13.8 % (11.5-14.5); WHITE BLOOD COUNT 6.6 10^3/ul (4.5-11.0)
[2017-05-11 06:40] LABS: ALB/GLOB RATIO 0.7 (1.1-1.8); MAGNESIUM 2.2 mg/dL (1.7-2.2); PHOSPHOROUS 2.5 mg/dL (2.5-4.5); TOTAL PROTEIN 6.6 g/dL (5.8-8.3)
--- NOTE | 2017-05-11 07:07 | CON ---
RENAL CONSULTATION LOCATION: The patient is located in room 263, bed 1. REQUESTED BY: Michaela Yun MD REASON FOR RENAL CONSULTATION: End-stage renal disease, for continuation of hemodialysis, and fever. HISTORY OF PRESENT ILLNESS: Mr. Carroll is 62-year-old elderly male with a history of renal failure, end-stage renal disease, on hemodialysis two times a week, Sunday and and HIV positive, was admitted with a chief complaint of fever for 4 days and temperature ranged between 101 and 103 at home. The patient was also complaining of nausea, vomiting x2, diarrhea, chills, unable to tolerate diet for the last two days, denied any black stool, and also had near syncope on Sunday. The patient was unable to give much history. The patient is confused and restless during dialysis this evening. The patient pulled out his needle x1 and after 2 hours, patient was very restless and got up from the bed and tried to pull the needle again and hemodialysis discontinued due to risk of bleeding and pulling the needles again. After 2 hours, the patient was incontinent and voided on the floor and also moved his stool on the floor, loose bowel movement on the floor. The patient was cleaned by the nursing staff and subsequently transferred back to the bed. The patient was confused and restless. PAST MEDICAL HISTORY: Significant for HIV positive; chronic hepatitis C; end-stage renal disease, on hemodialysis two times a week, Sunday and . PAST SURGICAL HISTORY: He is status post left upper extremity AV fistula. ALLERGIES: NO KNOWN DRUG ALLERGIES. SOCIAL HISTORY: Denies any smoking, alcohol, drugs. FAMILY HISTORY: Not significant. His partner is at the bedside in the room. HOME MEDICATIONS: Tenofovir, Emtriva, and Sustiva. CURRENT MEDICATIONS: His current medications in the hospital are Ativan 0.5 mg q. 4 hours; Emtriva 200 mg Sunday and Sunday; Flagyl 500 mg IV q. 8 hours; folic acid 1 mg daily; potassium phosphate 15 mL IV piggyback x1; Protonix 40 mg x1; Rocephin 2 g IV daily; Sustiva 600 mg p.o. at bedtime; Tylenol; Tenofovir; and thiamine. REVIEW OF SYSTEMS: Significant fever, confusion, nausea, vomiting, diarrhea, and decreased p.o. intake. All other review of systems are reviewed and are negative. PHYSICAL EXAMINATION GENERAL: Mr. Carroll is 62-year-old elderly male, moderately built, moderately nourished, not in distress, restless and confused during dialysis. VITAL SIGNS: Blood pressure 164/99, pulse 116, respirations 20, temperature 96.3, T-max is 104.2 rectal. HEENT: Pupils normal, react to light and accommodation. Conjunctivae pink. Sclerae anicteric. Tongue is dry and trachea is midline. LUNGS: Symmetric on both sides, bilateral breath sounds present. Clear to auscultation. CARDIOVASCULAR: [place] at the fifth intercostal space, midclavicular line, S1 and S2 audible. No murmur or gallop. ABDOMEN: Normal in appearance. Soft and tympanic. No guarding. No rigidity. No hepatosplenomegaly. CENTRAL NERVOUS SYSTEM: The patient is awake, confused, oriented x1. EXTREMITIES: No cyanosis. No clubbing. No edema. LABORATORY DATA: As of 05/10/2017 as follows; ABG; pH 7.51, pCO2 of 28, pO2 of 22, saturation 84.1. WBC is 7.7, hemoglobin 10.9, hematocrit is 30.6, platelets 82. Sodium 134, potassium 2.8, chloride 104, CO2 of 18, BUN 20, creatinine 2.3, glucose 133, calcium 7.6, phosphorus 1.0, magnesium is 1.4, total bilirubin 1.2, AST 87, ALT 37, and alkaline phosphate is 117. Total protein is 7.3, albumin is 3.0. Urine tox screen is negative. Alcohol less than 10. Hepatitis A antibody IgM is negative. Hepatitis B surface antigen negative. Hepatitis B core antibody IgM is negative. Hepatitis C antibody is reactive. Labs as of 05/09/2017; WBC 6.8, hemoglobin 11.6, hematocrit is 33.5, and platelets 75. PT 12.1, PTT 30.3. Sodium 136, potassium 3.9, chloride 100, CO2 of 27, BUN 18, creatinine 2.4, glucose 123, calcium 8.1, phosphorus 1.3, magnesium 1.7, AST 90, ALT 41, and alkaline phosphate is 132. Troponin 0.01 and 0.01. Total protein 7.5. Albumin is 3.1. Urinalysis yellow, cloudy, pH 8, specific gravity 1.015, protein is 100, glucose negative, ketone trace, blood trace small, nitrites negative, bilirubin negative, urobilinogen 2.0, leukocyte esterase is negative, RBC 1-3, WBC 0-2, bacteria rare. Blood culture day 1 negative, day 1 x2. Chest x-ray is negative and the CT scan, no intracranial abnormality. ASSESSMENT AND PLAN: In summary, Mr. Carroll is 62 years old elderly male with a history of human immunodeficiency virus positive; end-stage renal disease, on hemodialysis two times a week, Sunday and ; on Sunday, was admitted with fever, nausea, vomiting, diarrhea; and found to have a low magnesium, low phosphorous, and low potassium and also fever of 104.2 and confusion. 1. Renal failure, end-stage renal disease, continue hemodialysis two times a week. 2. Sepsis, source is not clear, continue antibiotics as per Infectious Disease and followup blood culture reports and rule out meningitis, followup with the Infectious Disease and rule out metabolic encephalopathy. 3. Hypokalemia. 4. Hypomagnesemia. 5. Hypophosphatemia. 6. Loose bowel movement to rule out Clostridium difficile colitis. Also, check repeat BMP, CPK levels, magnesium, phosphorus, and potassium. Supplement magnesium 2 g IV piggyback x1 dose. Ultrasound of the kidneys, we will check 24 urine, protein,creatinine clearance and see if the patient has a reasonable renal function, may able to stop dialysis and also check echocardiogram. and Neurology evaluation. follow up blood c/s from HD unit, follow up c/s from hospital also EMR reviewed and history obtained from the review of the chart. Thank you for allowing me to participate in our patient's care. Lesley Jacob MD [facility]
[2017-05-11 07:23] LABS: POTASSIUM 2.9 mmol/L (3.6-5.0)
[2017-05-11] MEDS: cefTRIAXone 2 GM IN NS 2 GM/100 ML BAG IVPB SCH (09:44)
[2017-05-11] MEDS: Vancomycin 500mg in NS 500 MG/100 ML BAG IVPB SCH (11:28)
--- NOTE | 2017-05-11 11:42 | US ---
PROCEDURE: Renal ultrasound dated 05/03/2017 HISTORY: Assess kidney size. COMPARISON: No prior study available for comparison TECHNIQUE: Sonogram of the kidneys. FINDINGS: RIGHT KIDNEY: Right kidney measures approximately 9.4 x 4.9 x 4.6 cm. There is a small partially exophytic cyst lower pole right kidney measuring 1.1 x 1.0 x 0.07 cm. Renal cortex appears slightly diminutive however no evidence of nephrolithiasis hydronephrosis. LEFT KIDNEY: Left kidney measures approximately 9.6 x 5.0 x 4.3 cm Normal in size, contour and echogenicity. No stone, solid mass lesion or hydronephrosis visualized. OTHER FINDINGS: None. IMPRESSION: Questionable mild right cortical volume loss. Small exophytic cyst lower pole right kidney. No evidence of nephrolithiasis or hydronephrosis. Small exophytic cyst
--- NOTE | 2017-05-11 14:45 | CT ---
PROCEDURE: CT Abdomen and Pelvis without intravenous contrast HISTORY: r/o infection COMPARISON: None. TECHNIQUE: Technique. Contrast Dose: Radiation dose: Total exam DLP = 479 mGy-cm. This CT exam was performed using one or more of the following dose reduction techniques: Automated exposure control, adjustment of the mA and/or kV according to patient size, and/or use of iterative reconstruction technique. FINDINGS: LOWER THORAX: Minimal bibasilar infiltrates. LIVER: Diffuse fatty infiltration. GALLBLADDER AND BILE DUCTS: Gallstones.. PANCREAS: Unremarkable. No gross lesion or ductal dilatation. SPLEEN: Unremarkable. ADRENALS: Unremarkable. No mass. KIDNEYS AND URETERS: 5 millimeter hyperdense lesion in the left mid kidney likely representing a hemorrhagic cyst.. No hydronephrosis. No solid mass. VASCULATURE: Unremarkable. No aortic aneurysm. BOWEL: Unremarkable. No obstruction. No gross mural thickening. APPENDIX: Unremarkable. Normal appendix. PERITONEUM: Unremarkable. No free fluid. No free air. LYMPH NODES: Unremarkable. No enlarged lymph nodes. BLADDER: Unremarkable. REPRODUCTIVE: Unremarkable. BONES: No acute fracture. OTHER FINDINGS: None. IMPRESSION: Fatty infiltration of liver. Cholelithiasis. Minimal bibasilar infiltrates. No evidence of acute pathology in the abdomen.
--- NOTE | 2017-05-11 16:49 | CP.PCM.CON ---
<Julio Reyna - Last Filed: 05/11/17 16:59> History of Present Illness - History of Present Illness History of Present Illness: PGY-[address] Davidson's Neurology Service: Reason for consult: Rule out Meningitis This is a 62 year old male with PMHx HIV, ESRD on HD () who presented with intractable fevers. At home, his temperatures were consistently elevated. Patient has been nauseous and complains of both vomiting and diarrhea. Patient has not been able to tolerate food. Patient admits near syncopal event due to dehydration and fatigue. Patient last week had flu-like symptoms which improved slightly but became worse starting last . Patient had abdominal pain at the time. At time of encounter, patient complains of fevers, chills, weakness, loose stools. Patient's stated that when the fever reached 103 degrees at home, patient was in a confusional state. PMHx: ESRD on HD (), HIV PSHx: AV fistula left forearm Allergies: NKDA Social: 2 drinks of tequila nightly. Denies tobacco, drugs. Review of Systems - Constitutional Constitutional: Chills, Fever, Weakness - EENT Eyes: absent: Change in Vision Ears: absent: Decreased Hearing - Cardiovascular Cardiovascular: absent: Chest Pain - Respiratory Respiratory: absent: Dyspnea - Gastrointestinal Gastrointestinal: Nausea. absent: Abdominal Pain, Vomiting - Musculoskeletal Musculoskeletal: absent: Neck Pain, Stiffness - Neurological Neurological: Weakness. absent: Dizziness, Numbness, Headaches, Tingling - Endocrine Endocrine: absent: Palpitations Past Patient History - Past Social History Smoking Status: n - RENAL Hx Chronic Kidney Disease: Yes Hx Dialysis: Yes Date of Last Dialysis Treatment: 05/08/17 Hx Renal Failure: Yes - HEMATOLOGICAL/ONCOLOGICAL Hx AIDS: (HIV pos only) - MUSCULOSKELETAL/RHEUMATOLOGICAL Hx Arthritis: Yes Hx Back Pain: Yes Hx Falls: Yes - GENITOURINARY/GYNECOLOGICAL Hx Sexually Transmitted Disorders: Yes Hx Urinary Tract Infection: Yes - PSYCHIATRIC Hx Substance Use: No - SURGICAL HISTORY Hx Surgeries: Yes Meds Allergies/Adverse Reactions: Allergies Allergy/AdvReac Type Severity Reaction Status Date / Time No Known Allergies Allergy Verified 05/09/17 19:46 - Medications Medications: Current Medications Acetaminophen (Tylenol 325mg Tab) 650 mg PO Q6H PRN PRN Reason: Fever >100.4 F Last Admin: 05/11/17 16:14 Dose: 650 mg Folic Acid (Folic Acid) 1 mg PO DAILY [facility] Last Admin: 05/11/17 09:44 Dose: 1 mg Home Med (Home Med) 1 unit PO HS [facility] Sodium Chloride (Sodium Chloride 0.9%) 1,000 mls @ 70 mls/hr IV .[id number] [facility] Last Admin: 05/11/17 06:14 Dose: Not Given Ceftriaxone Sodium (Rocephin 2 Gm Ivpb) 2 gm in 100 mls @ 100 mls/hr IVPB DAILY [facility] PRN Reason: Protocol Last Admin: 05/11/17 09:44 Dose: 100 mls/hr Metronidazole (Flagyl) 500 mg in 100 mls @ 100 mls/hr IVPB Q8 [facility] PRN Reason: Protocol Last Admin: 05/11/17 14:00 Dose: 100 mls/hr Vancomycin HCl (Vancomycin 500mg In Ns) 500 mg in 100 mls @ 200 mls/hr IVPB DAILY [facility] PRN Reason: Protocol Last Admin: 05/11/17 11:28 Dose: 200 mls/hr Lorazepam (Ativan) 0.5 mg PO Q4 [facility] PRN Reason: Protocol Last Admin: 05/11/17 16:10 Dose: 0.5 mg Non-Formulary Medication (Emtricitabine [Emtriva]) 200 mg PO MoWe [facility] Pantoprazole Sodium (Protonix Inj) 40 mg IVP DAILY [facility] Last Admin: 05/11/17 09:44 Dose: 40 mg Tenofovir Disoproxil Fumarate (Viread) 300 mg PO MON [facility] Thiamine HCl (Vitamin B1 Tab) 50 mg PO DAILY [facility] Last Admin: 05/11/17 09:44 Dose: 50 mg Physical Exam - Constitutional Appears: No Acute Distress - Head Exam Head Exam: ATRAUMATIC, NORMAL INSPECTION, NORMOCEPHALIC - Eye Exam Eye Exam: EOMI, PERRL - ENT Exam ENT Exam: Mucous Membranes Moist - Neck Exam Additional comments: No neck stiffness or other meningeal signs. - Respiratory Exam Respiratory Exam: Clear to Auscultation Bilateral - Cardiovascular Exam Cardiovascular Exam: REGULAR RHYTHM - GI/Abdominal Exam GI & Abdominal Exam: Normal Bowel Sounds - Neurological Exam Neurological exam: Alert, CN II-XII Intact, Oriented x3 Additional comments: Manual muscle strength testing 5/5 bilateral UE and LE Sensations intact bilateral UE and LE No pronator drift Normal finger to nose test Down-going plantar responses. Results - Vital Signs Recent Vital Signs: Last Vital Signs Temp 101.4 F H 05/11/17 16:19 Pulse 91 H 05/11/17 12:00 Resp 20 05/11/17 12:00 BP 119/75 05/11/17 12:00 Pulse Ox 95 05/11/17 00:01 - Labs Result Diagrams: 05/11/17 05:30 05/11/17 05:30 Labs: Laboratory Results - last 24 hr 05/10/17 05/10/17 05/10/17 17:00 17:00 20:00 WBC 7.7 RBC 3.24 L Hgb 10.9 L Hct 30.6 L MCV 94.4 MCH 33.6 MCHC 35.6 RDW 13.5 Plt Count 82 L MPV 9.7 Gran % 77.5 H Lymph % (Auto) 7.2 L Charlton % (Auto) 15.0 H Eos % (Auto) 0.0 L Baso % (Auto) 0.3 Gran # 5.97 Lymph # 0.6 L Charlton # 1.2 H Eos # 0.0 Baso # 0.02 Sodium 134 138 Potassium 2.8 L* D 3.3 L Chloride 104 103 Carbon Dioxide 18 L 13 L Anion Gap 15 25 H BUN 20 10 Creatinine 2.3 H 1.5 H Est GFR ( Amer) 35 57 Est GFR (Non-Af Amer) 29 47 Random Glucose 133 H 129 H Lactic Acid Calcium 7.6 L 8.6 Phosphorus 1.0 L* 1.7 L Magnesium 1.4 L 1.6 L Total Bilirubin 1.2 AST 87 H ALT 37 Alkaline Phosphatase 117 Total Creatine Kinase 322 H CK-MB (CK-2) 1.6 CK-MB (CK-2) % Cancelled Total Protein 7.3 Albumin 3.0 Globulin 4.2 Albumin/Globulin Ratio 0.7 L 05/11/17 05/11/17 05/11/17 00:45 05:30 05:30 WBC 6.6 RBC 2.97 L Hgb 9.8 L Hct 28.4 L MCV 95.6 MCH 33.0 MCHC 34.5 RDW 13.8 Plt Count 81 L MPV 9.8 Gran % Lymph % (Auto) Charlton % (Auto) Eos % (Auto) Baso % (Auto) Gran # Lymph # Charlton # Eos # Baso # Sodium 137 Potassium 2.9 L* Chloride 107 Carbon Dioxide 19 L Anion Gap 14 BUN 17 Creatinine 2.0 H Est GFR ( Amer) 41 Est GFR (Non-Af Amer) 34 Random Glucose 91 Lactic Acid 1.4 Calcium 7.0 L Phosphorus 2.5 Magnesium 2.2 Total Bilirubin 1.0 AST 78 H ALT 34 Alkaline Phosphatase 92 Total Creatine Kinase CK-MB (CK-2) CK-MB (CK-2) % Total Protein 6.6 Albumin 2.6 L Globulin 4.0 Albumin/Globulin Ratio 0.7 L Assessment & Plan - Assessment and Plan (Free Text) Assessment: This is a 62 year old male with PMHx HIV, ESRD on HD (,) who presented with intractable fevers. Patient's current state is due to sepsis. Source of infection is unlikely to be meningitis given the lack of meningeal signs on physical exam. Preliminary cultures show gram positive cocci in the urine. Plan: 1) Fioricet Q4H prn for headaches. 2) No meningeal signs. 3) If Lumber puncture is still desired, recommend it to be done under fluoroscopy given patient's HIV status. 4) Septic workup and management per medical team 5) Continue IV antibiotics 6) Monitor and correct electrolytes Case discussed with Dr. Lety Reyna PGY1 - Date & Time Date: 05/11/17 Time: 16:00 <Douglas Davidson - Last Filed: 05/11/17 17:39> Meds - Medications Medications: Current Medications Acetaminophen (Tylenol 325mg Tab) 650 mg PO Q6H PRN PRN Reason: Fever >100.4 F Last Admin: 05/11/17 16:14 Dose: 650 mg Folic Acid (Folic Acid) 1 mg PO DAILY [facility] Last Admin: 05/11/17 09:44 Dose: 1 mg Home Med (Home Med) 1 unit PO HS [facility] Sodium Chloride (Sodium Chloride 0.9%) 1,000 mls @ 70 mls/hr IV .[id number] [facility] Last Admin: 05/11/17 06:14 Dose: Not Given Ceftriaxone Sodium (Rocephin 2 Gm Ivpb) 2 gm in 100 mls @ 100 mls/hr IVPB DAILY [facility] PRN Reason: Protocol Last Admin: 05/11/17 09:44 Dose: 100 mls/hr Metronidazole (Flagyl) 500 mg in 100 mls @ 100 mls/hr IVPB Q8 [facility] PRN Reason: Protocol Last Admin: 05/11/17 14:00 Dose: 100 mls/hr Vancomycin HCl (Vancomycin 500mg In Ns) 500 mg in 100 mls @ 200 mls/hr IVPB DAILY [facility] PRN Reason: Protocol Last Admin: 05/11/17 11:28 Dose: 200 mls/hr Lorazepam (Ativan) 0.5 mg PO Q4 [facility] PRN Reason: Protocol Last Admin: 05/11/17 16:10 Dose: 0.5 mg Non-Formulary Medication (Emtricitabine [Emtriva]) 200 mg PO MoWe [facility] Pantoprazole Sodium (Protonix Inj) 40 mg IVP DAILY [facility] Last Admin: 05/11/17 09:44 Dose: 40 mg Tenofovir Disoproxil Fumarate (Viread) 300 mg PO MON [facility] Thiamine HCl (Vitamin B1 Tab) 50 mg PO DAILY [facility] Last Admin: 05/11/17 09:44 Dose: 50 mg Results - Vital Signs Recent Vital Signs: Last Vital Signs Temp 101.4 F H 05/11/17 16:19 Pulse 91 H 05/11/17 12:00 Resp 20 05/11/17 12:00 BP 119/75 05/11/17 12:00 Pulse Ox 95 05/11/17 00:01 - Labs Result Diagrams: 05/11/17 05:30 05/11/17 05:30 Labs: Laboratory Results - last 24 hr 05/10/17 05/10/17 05/11/17 17:00 20:00 00:45 WBC RBC Hgb Hct MCV MCH MCHC RDW Plt Count MPV Sodium 134 138 Potassium 2.8 L* D 3.3 L Chloride 104 103 Carbon Dioxide 18 L 13 L Anion Gap 15 25 H BUN 20 10 Creatinine 2.3 H 1.5 H Est GFR ( Amer) 35 57 Est GFR (Non-Af Amer) 29 47 Random Glucose 133 H 129 H Lactic Acid 1.4 Calcium 7.6 L 8.6 Phosphorus 1.0 L* 1.7 L Magnesium 1.4 L 1.6 L Total Bilirubin 1.2 AST 87 H ALT 37 Alkaline Phosphatase 117 Total Creatine Kinase 322 H CK-MB (CK-2) 1.6 CK-MB (CK-2) % Cancelled Total Protein 7.3 Albumin 3.0 Globulin 4.2 Albumin/Globulin Ratio 0.7 L 05/11/17 05/11/17 05:30 05:30 WBC 6.6 RBC 2.97 L Hgb 9.8 L Hct 28.4 L MCV 95.6 MCH 33.0 MCHC 34.5 RDW 13.8 Plt Count 81 L MPV 9.8 Sodium 137 Potassium 2.9 L* Chloride 107 Carbon Dioxide 19 L Anion Gap 14 BUN 17 Creatinine 2.0 H Est GFR ( Amer) 41 Est GFR (Non-Af Amer) 34 Random Glucose 91 Lactic Acid Calcium 7.0 L Phosphorus 2.5 Magnesium 2.2 Total Bilirubin 1.0 AST 78 H ALT 34 Alkaline Phosphatase 92 Total Creatine Kinase CK-MB (CK-2) CK-MB (CK-2) % Total Protein 6.6 Albumin 2.6 L Globulin 4.0 Albumin/Globulin Ratio 0.7 L Attending/Attestation - Attestation I have personally seen and examined this patient.: Yes I have fully participated in the care of the patient.: Yes I have reviewed all pertinent clinical information: Yes
--- NOTE | 2017-05-11 17:11 | MRI ---
PROCEDURE: MRI BRAIN WITHOUT CONTRAST HISTORY: meningitis COMPARISON: None TECHNIQUE: Multiplanar, multisequence MR images of the brain were obtained without intravenous contrast enhancement. FINDINGS: HEMORRHAGE: Noncontrast head CT from 05/10/2017 DWI: No evidence of an acute or early subacute infarction. BRAIN PARENCHYMA: Scattered T2/FLAIR hyperintense foci in the supratentorial white matter are statistically most compatible with mild chronic microangiopathic changes. There is no mass, mass effect or abnormal extra-axial fluid collection. There is no territorial infarction. The midline sagittal structures are normal. VENTRICLES: There is mild age-related global parenchymal volume loss and proportionate enlargement of the ventricles and cortical sulci. CRANIUM: There is normal bone marrow signal pattern. ORBITS: Grossly unremarkable. PARANASAL SINUSES/MASTOIDS: There is mild mucosal thickening in the paranasal sinuses and small bilateral mastoid effusions VASCULAR SYSTEM: There are normal signal voids in the larger intracranial arteries. OTHER FINDINGS: None. IMPRESSION: No acute intracranial abnormality. Mild chronic microangiopathic changes and mild age-related global parenchymal volume loss.
--- NOTE | 2017-05-11 17:53 | CP.PCM.PN ---
Subjective - Date & Time of Evaluation Date of Evaluation: 05/11/17 Time of Evaluation: 17:43 - Subjective Subjective: Infectious Disease Follow Up: May 11, 2017 62 yo male presenting with fevers for the past 4 days prior to hospitalization. Temperature was as high as 103.0 F. He had a near syncopal episode on Sunday. The patient was ESRD on HD and a history of HIV on HAART medications. Diphtheroids seen in blood cultures at [facility]. Gram variable rods on one blood culture. On Vancomycin, Rocephin, and Flagyl for treatment at this time. To give another vancomycin dose on next HD session. Clinically much better today. Still need to see current CD4 count. Fevers are downtrending but still present. Objective - Vital Signs/Intake and Output Vital Signs (last 24 hours): Temp Pulse Resp BP Pulse Ox 101.4 F H 91 H 20 119/75 95 05/11/17 16:19 05/11/17 12:00 05/11/17 12:00 05/11/17 12:00 05/11/17 00:01 Intake and Output: 05/11/17 05/11/17 06:59 18:59 Intake Total 240 Output Total 300 Balance -60 - Medications Medications: Current Medications Acetaminophen (Tylenol 325mg Tab) 650 mg PO Q6H PRN PRN Reason: Fever >100.4 F Last Admin: 05/11/17 16:14 Dose: 650 mg Folic Acid (Folic Acid) 1 mg PO DAILY [facility] Last Admin: 05/11/17 09:44 Dose: 1 mg Home Med (Home Med) 1 unit PO HS [facility] Sodium Chloride (Sodium Chloride 0.9%) 1,000 mls @ 70 mls/hr IV .[id number] [facility] Last Admin: 05/11/17 06:14 Dose: Not Given Ceftriaxone Sodium (Rocephin 2 Gm Ivpb) 2 gm in 100 mls @ 100 mls/hr IVPB DAILY [facility] PRN Reason: Protocol Last Admin: 05/11/17 09:44 Dose: 100 mls/hr Metronidazole (Flagyl) 500 mg in 100 mls @ 100 mls/hr IVPB Q8 [facility] PRN Reason: Protocol Last Admin: 05/11/17 14:00 Dose: 100 mls/hr Vancomycin HCl (Vancomycin 500mg In Ns) 500 mg in 100 mls @ 200 mls/hr IVPB DAILY [facility] PRN Reason: Protocol Last Admin: 05/11/17 11:28 Dose: 200 mls/hr Lorazepam (Ativan) 0.5 mg PO Q4 [facility] PRN Reason: Protocol Last Admin: 05/11/17 16:10 Dose: 0.5 mg Non-Formulary Medication (Emtricitabine [Emtriva]) 200 mg PO MoWe [facility] Pantoprazole Sodium (Protonix Inj) 40 mg IVP DAILY [facility] Last Admin: 05/11/17 09:44 Dose: 40 mg Tenofovir Disoproxil Fumarate (Viread) 300 mg PO MON [facility] Thiamine HCl (Vitamin B1 Tab) 50 mg PO DAILY [facility] Last Admin: 05/11/17 09:44 Dose: 50 mg - Labs Labs: 05/11/17 05:30 05/11/17 05:30 PT 12.1 Seconds (9.9-11.8) H 05/09/17 20:28 INR 1.12 (0.93-1.08) H 05/09/17 20:28 APTT 30.3 Seconds (23.7-30.8) 05/09/17 20:28 - Constitutional Appears: Toxic, No Acute Distress, Chronically Ill - Head Exam Head Exam: ATRAUMATIC, NORMOCEPHALIC - Eye Exam Eye Exam: EOMI, PERRL Pupil Exam: NORMAL ACCOMODATION, PERRL - ENT Exam ENT Exam: Mucous Membranes Moist, Normal External Ear Exam, TM's Normal Bilaterally - Neck Exam Neck Exam: Full ROM, Normal Inspection - Respiratory Exam Respiratory Exam: Clear to Ausculation Bilateral, NORMAL BREATHING PATTERN. absent: Rales, Rhonchi, Wheezes - Cardiovascular Exam Cardiovascular Exam: Tachycardia, +S1, +S2 - GI/Abdominal Exam GI & Abdominal Exam: Soft, Normal Bowel Sounds. absent: Distended, Tenderness - Extremities Exam Extremities Exam: Full ROM Additional comments: Left forearm AV fistula with palpable thrill and audible bruits - Neurological Exam Neurological Exam: Alert, Awake, CN II-XII Intact, Oriented x3 - Psychiatric Exam Psychiatric exam: Normal Affect, Normal Mood - Skin Skin Exam: Intact, Normal Color Assessment and Plan - Assessment and Plan (Free Text) Assessment: 62 yo male with persistent fevers in history of HIV and ESRD on HD. The patient is taking Viread, Sustiva, and Emtriva for HAART. He states he is compliant with HAART. Supportive care. Continue on IV antibiotics of Vancomcyin, Rocephin, and Flagyl at this time. Check CD4 and HIV Viral load. Carias cultures. Chest X-ray showed no acute disease. Possible UTI. CD4 would provide more guidance on possible sources of the patient's fever. Diphtheroids in blood cultures from [facility]. Gram Variable Rods in one blood culture here... noted gram positive cocci in urine culture. If Diphtheroids are the culprit, it is imperative to obtain a echocardiogram to rule out endocarditis especially in a patient with a history of being immunocompromised. Will see what the final identification of the UTI is as Diphtheroids can cause UTIs as well. Thank you for allowing me to participate in the care of the patient, we will follow with you.
[2017-05-11] MEDS ORDERED: Piperacillin/Tazobact 2.25gm 2.25 GM/100 ML BAG IVPB STA (20:16)
[2017-05-11 20:30] LABS: CYTOMEGALOVIRUS AB (IGG) >10.00 U/mL
--- NOTE | 2017-05-11 20:31 | CP.PCM.PN ---
<MiltonMagdaleno Levin - Last Filed: 05/11/17 20:34> Subjective - Date & Time of Evaluation Date of Evaluation: 05/11/17 Time of Evaluation: 09:00 - Subjective Subjective: Pt. s/e at bedside. Patient is much better clinically today - is A/O X 3, but needs some prompting for the year and location. Pt denies any n/v/d, but also states that he has not eaten anything since he got to the hospital. Pt denies any further complaints at this time. Patient ran a fever up to 102.9 overnight. Currently patient's temp is 100.4, his fever is resolving. Patient is on Tylenol, Flagyl, Zosyn Objective - Vital Signs/Intake and Output Vital Signs (last 24 hours): Temp Pulse Resp BP Pulse Ox 100.8 F H 104 H 20 109/65 95 05/11/17 18:00 05/11/17 18:00 05/11/17 18:00 05/11/17 18:00 05/11/17 00:01 Intake and Output: 05/11/17 05/12/17 18:59 06:59 Intake Total 1030 Balance 1030 - Medications Medications: Current Medications Acetaminophen (Tylenol 325mg Tab) 650 mg PO Q6H PRN PRN Reason: Fever >100.4 F Last Admin: 05/11/17 16:14 Dose: 650 mg Folic Acid (Folic Acid) 1 mg PO DAILY [facility] Last Admin: 05/11/17 09:44 Dose: 1 mg Home Med (Home Med) 1 unit PO HS [facility] Sodium Chloride (Sodium Chloride 0.9%) 1,000 mls @ 70 mls/hr IV .[id number] [facility] Last Admin: 05/11/17 06:14 Dose: Not Given Ceftriaxone Sodium (Rocephin 2 Gm Ivpb) 2 gm in 100 mls @ 100 mls/hr IVPB DAILY [facility] PRN Reason: Protocol Last Admin: 05/11/17 09:44 Dose: 100 mls/hr Metronidazole (Flagyl) 500 mg in 100 mls @ 100 mls/hr IVPB Q8 [facility] PRN Reason: Protocol Last Admin: 05/11/17 14:00 Dose: 100 mls/hr Vancomycin HCl (Vancomycin 500mg In Ns) 500 mg in 100 mls @ 200 mls/hr IVPB DAILY [facility] PRN Reason: Protocol Last Admin: 05/11/17 11:28 Dose: 200 mls/hr Piperacillin Sod/Tazobactam Sod (Zosyn 2.25 Gm In 0.9% 100 Ml) 2.25 gm in 100 mls @ 100 mls/hr IVPB [facility] PRN Reason: Protocol Stop: 05/11/17 21:15 Lorazepam (Ativan) 0.5 mg PO Q4 [facility] PRN Reason: Protocol Last Admin: 05/11/17 16:10 Dose: 0.5 mg Non-Formulary Medication (Emtricitabine [Emtriva]) 200 mg PO MoWe [facility] Pantoprazole Sodium (Protonix Inj) 40 mg IVP DAILY [facility] Last Admin: 05/11/17 09:44 Dose: 40 mg Tenofovir Disoproxil Fumarate (Viread) 300 mg PO MON [facility] Thiamine HCl (Vitamin B1 Tab) 50 mg PO DAILY [facility] Last Admin: 05/11/17 09:44 Dose: 50 mg - Labs Labs: 05/11/17 05:30 05/11/17 05:30 PT 12.1 Seconds (9.9-11.8) H 05/09/17 20:28 INR 1.12 (0.93-1.08) H 05/09/17 20:28 APTT 30.3 Seconds (23.7-30.8) 05/09/17 20:28 - Constitutional Appears: Unkempt - Head Exam Head Exam: ATRAUMATIC, NORMAL INSPECTION, NORMOCEPHALIC - Eye Exam Eye Exam: EOMI, Normal appearance, PERRL Pupil Exam: NORMAL ACCOMODATION, PERRL - ENT Exam ENT Exam: Mucous Membranes Moist, Normal Exam - Neck Exam Neck Exam: Full ROM, Normal Inspection - Respiratory Exam Respiratory Exam: Clear to Ausculation Bilateral, NORMAL BREATHING PATTERN - Cardiovascular Exam Cardiovascular Exam: REGULAR RHYTHM - GI/Abdominal Exam GI & Abdominal Exam: Soft, Normal Bowel Sounds - Rectal Exam Rectal Exam: NORMAL INSPECTION - Extremities Exam Extremities Exam: Full ROM, Normal Capillary Refill, Normal Inspection - Back Exam Back Exam: NORMAL INSPECTION - Neurological Exam Neurological Exam: Alert, Awake, CN II-XII Intact, Normal Gait, Oriented x3 - Psychiatric Exam Psychiatric exam: Normal Affect, Normal Mood Assessment and Plan - Assessment and Plan (Free Text) Assessment: Mr. Carroll is a 62 y/o M with a PMHx significant specifically for HIV who presented with c/o Fever. 1. Fever - Neuro c/s: Meningitis unlikely; if still desire LP, do under fluoroscopy given HIV status - ID consulted: R/o endocarditis if diphtheroids seen in blood cultures, found at [facility] - Nephro c/s: Continue HD twice a week - MRI Brain: Mild chronic microangiopathic changes, age-related parenchymal volume loss - CT Abd/P: Bibasilar infiltrates; Cholelithiasis - CXR: No acute disease - Urine cultures: Gram pos cocci - Blood cultures: negative - Hep Panel: A, B Negative; C POSITIVE - Tylenol prn for fever - Vanc and Zosyn - Make sure patient is getting appropriate dose of Zosyn - F/u C. diff, fecal leukocytes, stool culture, ova and parasites - F/u CT Chest - F/u TSH 2. Hypokalemia - 3.3 on admission; 2.9 overnight; repleted. - Trend, replete as necessary 3. Hypophosphatemia - Phos 1.3, repleted with Neutra-phos - Trend Phos, replete as necessary 4. HIV - Cont home meds: Sustiva, Emtriva, Viread 5. ESRD - Cont HD, Tues and Thurs - Avoid nephrotoxic medications 6. GI/DVT PPx - Protonix - SCDs <Jama ZAYAS,Michaela - Last Filed: 05/12/17 13:01> Objective - Vital Signs/Intake and Output Vital Signs (last 24 hours): Temp Pulse Resp BP Pulse Ox 99.0 F 91 H 20 139/68 98 05/12/17 12:00 05/12/17 12:00 05/12/17 12:00 05/12/17 12:00 05/12/17 06:00 Intake and Output: 05/12/17 05/12/17 06:59 18:59 Intake Total 2460 Output Total 975 Balance 1485 - Medications Medications: Current Medications Acetaminophen (Tylenol 325mg Tab) 650 mg PO Q6H PRN PRN Reason: Fever >100.4 F Last Admin: 05/11/17 16:14 Dose: 650 mg Folic Acid (Folic Acid) 1 mg PO DAILY [facility] Last Admin: 05/12/17 10:02 Dose: 1 mg Home Med (Home Med) 1 unit PO HS [facility] Last Admin: 05/11/17 22:06 Dose: Not Given Sodium Chloride (Sodium Chloride 0.9%) 1,000 mls @ 70 mls/hr IV .[id number] [facility] Last Admin: 05/12/17 04:14 Dose: 70 mls/hr Vancomycin HCl (Vancomycin 500mg In Ns) 500 mg in 100 mls @ 200 mls/hr IVPB DAILY [facility] PRN Reason: Protocol Last Admin: 05/12/17 11:11 Dose: 200 mls/hr Levofloxacin/Dextrose (Levaquin 250mg) 250 mg in 50 mls @ 100 mls/hr IVPB Q48H [facility] Potassium Chloride (Potassium Chloride 10 Meq/100 Ml) 10 meq in 100 mls @ 100 mls/hr IVPB Q2H [facility] Stop: 05/12/17 14:59 Lorazepam (Ativan) 0.5 mg PO Q4 [facility] PRN Reason: Protocol Last Admin: 05/12/17 08:58 Dose: Not Given Non-Formulary Medication (Emtricitabine [Emtriva]) 200 mg PO MoWe [facility] Pantoprazole Sodium (Protonix Inj) 40 mg IVP DAILY [facility] Last Admin: 05/12/17 10:02 Dose: 40 mg Tenofovir Disoproxil Fumarate (Viread) 300 mg PO MON [facility] Thiamine HCl (Vitamin B1 Tab) 50 mg PO DAILY [facility] Last Admin: 05/12/17 10:02 Dose: 50 mg - Labs Labs: 05/12/17 07:35 05/12/17 07:35 PT 12.1 Seconds (9.9-11.8) H 05/09/17 20:28 INR 1.12 (0.93-1.08) H 05/09/17 20:28 APTT 30.3 Seconds (23.7-30.8) 05/09/17 20:28 Attending/Attestation - Attestation I have personally seen and examined this patient.: Yes I have fully participated in the care of the patient.: Yes I have reviewed all pertinent clinical information, including history, physical exam and plan: Yes Notes (Text): 05/12/17 12:58 Patient was seen and examined with medical engineer. Agreed with resident assessment and plan. 62 yrs old male with PMH of HIV,ESRD on Hemodialysis, and alcohol abuse was admitted with change of mental status, was found to be septics, started on IV antibiotics vancomycin and zosyn.Patient was also found to be in alcohol withdrawal.He is still febile, etiology of sepsis is not clear, will get CT abdomen and Pelvis and will also get CT chest. Mental statu shas improved, we will follow up cultures. We will also get 2D Echo. Management plan was discussed in detail with patient Education was provided.
[2017-05-11] MEDS: EFAVIRENZ PO SCH (22:06)
--- NOTE | 2017-05-11 22:26 | CT ---
EXAM: CT Chest Without Intravenous Contrast CLINICAL HISTORY: 62 years old, male; Signs and symptoms; Other: R/O infection; Additional info: Rule out infxn TECHNIQUE: Axial computed tomography images of the chest without intravenous contrast. This CT exam was performed using one or more of the following dose reduction techniques: automated exposure control, adjustment of the mA and/or kV according to patient size, and/or use of iterative reconstruction technique. MIP reconstructed images were created and reviewed. Coronal and sagittal reformatted images were created and reviewed. EXAM DATE/TIME: 05/11/2017 8:18 PM COMPARISON: DX - CHEST PORTABLE 05/09/2017 8:23:24 PM FINDINGS: Lungs: There is left lower lung infiltrate with consolidation. Bibasilar platelike atelectasis is present. Pleural space: There is trace pleural fluid bilaterally. . No pneumothorax. Heart: Unremarkable. No cardiomegaly. No significant pericardial effusion. Bones/joints: Fractures with callus formation of the right posterior lateral seventh and eighth ribs. No dislocation. Soft tissues: Unremarkable. Vasculature: The ascending area measures 3.8 cm in maximal diameter. The aortic arch measures 2.9 cm. The liver is decreased in attenuation consistent with fatty infiltration. Liver has a somewhat lobulated contour however is incompletely evaluated. Prominent vessels left upper quadrant. No thoracic aortic aneurysm. Lymph nodes: Unremarkable. No enlarged lymph nodes. Stomach and bowel: Oval area increased density in the gastric lumen probable pill. IMPRESSION: Left lower lung infiltrate with consolidation likely of infectious etiology. Trace pleural fluid bilaterally
[2017-05-12] MEDS: Sodium Chloride 0.9% 1,000 ML IV SCH (04:14)
[2017-05-12] MEDS: metroNIDAZOLE IV 500 mg/100 ml 500 MG/100 ML BAG IVPB SCH (05:32)
[2017-05-12 07:45] LABS: MEAN CELL VOLUME 96.9 fL (80.0-105.0); MEAN CORPUSCULAR HEMOGLOBIN 33.2 pg (25.0-35.0); MEAN CORPUSCULAR HGB CONC 34.3 g/dl (31.0-37.0); MEAN PLATELET VOLUME 9.7 fl (7.0-11.0); RED CELL DISTRIBUTION WIDTH 14.1 % (11.5-14.5); WHITE BLOOD COUNT 5.8 10^3/ul (4.5-11.0)
[2017-05-12 08:11] LABS: ALB/GLOB RATIO 0.6 (1.1-1.8); MAGNESIUM 1.9 mg/dL (1.7-2.2); PHOSPHOROUS 2.7 mg/dL (2.5-4.5); POTASSIUM 3.2 mmol/L (3.6-5.0); TOTAL PROTEIN 6.7 g/dL (5.8-8.3)
[2017-05-12] MEDS: cefTRIAXone 2 GM IN NS 2 GM/100 ML BAG IVPB SCH (10:02)
[2017-05-12] MEDS: Vancomycin 500mg in NS 500 MG/100 ML BAG IVPB SCH (11:11)
--- NOTE | 2017-05-12 11:32 | CARD ---
APPROVED REPORT EXAM: Two-dimensional and M-mode echocardiogram with Doppler and color Doppler. INDICATION 2D DIMENSIONS IVSd1.0 (0.7-1.1cm)LVDd5.8 (3.9-5.9cm) PWd1.0 (0.7-1.1cm)LVDs4.2 (2.5-4.0cm) FS (%) 28.3 %LVEF (%)50.0 (>50%) M-Mode DIMENSIONS Left Atrium (MM)3.10 (2.5-4.0cm)Aortic Root3.50 (2.2-3.7cm) Aortic Cusp Exc.2.10 (1.5-2.0cm) Aortic Valve AoV Peak Iwbhnxuk122.0cm/Luly Peak GR.14mmHg Mitral Valve MV E Hjemwpch13.7cm/sMV A Rpnnthgc455.0cm/sE/A ratio0.9 TDI Lateral E' Peak V12.40cm/sMedial E' Peak V7.70cm/sE/Lateral E'8.0 E/Medial E'12.9 Tricuspid Valve TR Peak Nqyfczgy371lz/sRAP [id number] Peak Gr.26mmHg OVGN65hrSp LEFT VENTRICLE The left ventricle is normal size. There is normal left ventricular wall thickness. Left ventricle is borderline. There is normal LV segmental wall motion. Transmitral Doppler flow pattern is Grade I-abnormal relaxation pattern. RIGHT VENTRICLE The right ventricle is normal size. There is normal right ventricular wall thickness. The right ventricular systolic function is normal. ATRIA The left atrium size is normal. The right atrium size is normal. AORTIC VALVE There is trace aortic regurgitation. MITRAL VALVE Mitral regurgitation is trace. TRICUSPID VALVE There is mild tricuspid regurgitation. There is mild pulmonary hypertension. GREAT VESSELS The aortic root is normal in size. The IVC is normal in size and collapses >50% with inspiration. <Conclusion> The left ventricle is normal size. There is normal left ventricular wall thickness. Left ventricle is borderline. There is normal LV segmental wall motion. Transmitral Doppler flow pattern is Grade I-abnormal relaxation pattern. There is mild tricuspid regurgitation. There is mild pulmonary hypertension.
[2017-05-12] MEDS ORDERED: levoFLOXacin 250 mg in D5W 250 MG/50 ML BAG IVPB SCH (11:45)
--- NOTE | 2017-05-12 12:04 | CP.PCM.PN ---
<MiltonMagdaleno - Last Filed: 05/12/17 12:05> Subjective - Date & Time of Evaluation Date of Evaluation: 05/12/17 Time of Evaluation: 07:00 - Subjective Subjective: Pt s/e at bedside. Pt much improved and is A/O x 4. Pt stated that he had a GI bug last 05/03, before being admitted. He further stated that he can handle a normal diet. Pt denies any n/v/d or f/ch. No further complaints at this time. CT Abdomen showed b/l infiltrates, so CT Chest was ordered, which showed LLL infiltrate. D/c'd flagyl, rocephin and added Levoquin. Pending ID recs, may send pt home on Levaquin PO. Current ABx are Vanc and Levaquin. Patient advanced to renal diet. 1 to 1 d/c'd. Fever resolved Objective - Vital Signs/Intake and Output Vital Signs (last 24 hours): Temp Pulse Resp BP Pulse Ox 99.7 F H 87 20 133/84 98 05/12/17 06:00 05/12/17 11:41 05/12/17 06:00 05/12/17 06:00 05/12/17 06:00 Intake and Output: 05/12/17 05/12/17 06:59 18:59 Intake Total 2460 Output Total 975 Balance 1485 - Medications Medications: Current Medications Acetaminophen (Tylenol 325mg Tab) 650 mg PO Q6H PRN PRN Reason: Fever >100.4 F Last Admin: 05/11/17 16:14 Dose: 650 mg Folic Acid (Folic Acid) 1 mg PO DAILY [facility] Last Admin: 05/12/17 10:02 Dose: 1 mg Home Med (Home Med) 1 unit PO HS [facility] Last Admin: 05/11/17 22:06 Dose: Not Given Sodium Chloride (Sodium Chloride 0.9%) 1,000 mls @ 70 mls/hr IV .[id number] [facility] Last Admin: 05/12/17 04:14 Dose: 70 mls/hr Vancomycin HCl (Vancomycin 500mg In Ns) 500 mg in 100 mls @ 200 mls/hr IVPB DAILY [facility] PRN Reason: Protocol Last Admin: 05/12/17 11:11 Dose: 200 mls/hr Levofloxacin/Dextrose (Levaquin 250mg) 250 mg in 50 mls @ 100 mls/hr IVPB Q48H [facility] Potassium Chloride (Potassium Chloride 10 Meq/100 Ml) 10 meq in 100 mls @ 100 mls/hr IVPB Q2H [facility] Stop: 05/12/17 14:59 Lorazepam (Ativan) 0.5 mg PO Q4 [facility] PRN Reason: Protocol Last Admin: 05/12/17 08:58 Dose: Not Given Non-Formulary Medication (Emtricitabine [Emtriva]) 200 mg PO MoWe [facility] Pantoprazole Sodium (Protonix Inj) 40 mg IVP DAILY [facility] Last Admin: 05/12/17 10:02 Dose: 40 mg Tenofovir Disoproxil Fumarate (Viread) 300 mg PO MON [facility] Thiamine HCl (Vitamin B1 Tab) 50 mg PO DAILY [facility] Last Admin: 05/12/17 10:02 Dose: 50 mg - Labs Labs: 05/12/17 07:35 05/12/17 07:35 PT 12.1 Seconds (9.9-11.8) H 05/09/17 20:28 INR 1.12 (0.93-1.08) H 05/09/17 20:28 APTT 30.3 Seconds (23.7-30.8) 05/09/17 20:28 - Constitutional Appears: Well - Head Exam Head Exam: ATRAUMATIC, NORMAL INSPECTION, NORMOCEPHALIC - Eye Exam Eye Exam: EOMI, Normal appearance, PERRL Pupil Exam: NORMAL ACCOMODATION, PERRL - ENT Exam ENT Exam: Mucous Membranes Moist, Normal Exam - Neck Exam Neck Exam: Full ROM, Normal Inspection - Respiratory Exam Respiratory Exam: Clear to Ausculation Bilateral, NORMAL BREATHING PATTERN - Cardiovascular Exam Cardiovascular Exam: REGULAR RHYTHM, +S1, +S2 - GI/Abdominal Exam GI & Abdominal Exam: Soft, Normal Bowel Sounds - Rectal Exam Rectal Exam: Deferred - Extremities Exam Extremities Exam: Full ROM, Normal Capillary Refill - Back Exam Back Exam: NORMAL INSPECTION - Neurological Exam Neurological Exam: Alert, Awake, CN II-XII Intact, Oriented x3 - Psychiatric Exam Psychiatric exam: Normal Mood Assessment and Plan - Assessment and Plan (Free Text) Assessment: Mr. Carroll is a 62 y/o M with a PMHx significant specifically for HIV who presented with c/o Fever. 1. Fever likely 2/2 HCAP VS Unknown Etiology - Neuro c/s: Meningitis unlikely; if still desire LP, do under fluoroscopy given HIV status - ID consulted: R/o endocarditis if diphtheroids seen in blood cultures, found at [facility] - Nephro c/s: Continue HD twice a week - MRI Brain: Mild chronic microangiopathic changes, age-related parenchymal volume loss - CT Abd/P: Bibasilar infiltrates; Cholelithiasis - CXR: No acute disease - Urine cultures: Gram pos cocci - Blood cultures: negative - Hep Panel: A, B Negative; C POSITIVE - CMV + - Tylenol prn for fever - Vanc and Levaquin for possible HCAP (Pt is on dialysis) - F/u C. diff, fecal leukocytes, stool culture, ova and parasites - F/u CT Chest: Showed LLL infiltrate, possibly infectious - F/u TSH: 0.76, NML - If patient feels better clinically, and pending ID approval, may be discharged with o/p ABx 2. Hypokalemia - 3.2 today, repleted. - Trend, replete as necessary 3. Hypophosphatemia - Phos 1.3, repleted with Neutra-phos - Trend Phos, replete as necessary 4. HIV - Cont home meds: Sustiva, Emtriva, Viread 5. ESRD - Cont HD, Tues and Thurs - Avoid nephrotoxic medications 6. GI/DVT PPx - Protonix - SCDs <Jama ZAYAS,Michaela - Last Filed: 05/12/17 13:13> Objective - Vital Signs/Intake and Output Vital Signs (last 24 hours): Temp Pulse Resp BP Pulse Ox 99.0 F 91 H 20 139/68 98 05/12/17 12:00 05/12/17 12:00 05/12/17 12:00 05/12/17 12:00 05/12/17 06:00 Intake and Output: 05/12/17 05/12/17 06:59 18:59 Intake Total 2460 Output Total 975 Balance 1485 - Medications Medications: Current Medications Acetaminophen (Tylenol 325mg Tab) 650 mg PO Q6H PRN PRN Reason: Fever >100.4 F Last Admin: 05/11/17 16:14 Dose: 650 mg Folic Acid (Folic Acid) 1 mg PO DAILY [facility] Last Admin: 05/12/17 10:02 Dose: 1 mg Home Med (Home Med) 1 unit PO HS [facility] Last Admin: 05/11/17 22:06 Dose: Not Given Sodium Chloride (Sodium Chloride 0.9%) 1,000 mls @ 70 mls/hr IV .[id number] [facility] Last Admin: 05/12/17 04:14 Dose: 70 mls/hr Vancomycin HCl (Vancomycin 500mg In Ns) 500 mg in 100 mls @ 200 mls/hr IVPB DAILY [facility] PRN Reason: Protocol Last Admin: 05/12/17 11:11 Dose: 200 mls/hr Levofloxacin/Dextrose (Levaquin 250mg) 250 mg in 50 mls @ 100 mls/hr IVPB Q48H [facility] Potassium Chloride (Potassium Chloride 10 Meq/100 Ml) 10 meq in 100 mls @ 100 mls/hr IVPB Q2H [facility] Stop: 05/12/17 14:59 Lorazepam (Ativan) 0.5 mg PO Q4 [facility] PRN Reason: Protocol Last Admin: 05/12/17 08:58 Dose: Not Given Non-Formulary Medication (Emtricitabine [Emtriva]) 200 mg PO MoWe [facility] Pantoprazole Sodium (Protonix Inj) 40 mg IVP DAILY [facility] Last Admin: 05/12/17 10:02 Dose: 40 mg Tenofovir Disoproxil Fumarate (Viread) 300 mg PO MON [facility] Thiamine HCl (Vitamin B1 Tab) 50 mg PO DAILY [facility] Last Admin: 05/12/17 10:02 Dose: 50 mg - Labs Labs: 05/12/17 07:35 05/12/17 07:35 PT 12.1 Seconds (9.9-11.8) H 05/09/17 20:28 INR 1.12 (0.93-1.08) H 05/09/17 20:28 APTT 30.3 Seconds (23.7-30.8) 05/09/17 20:28 Attending/Attestation - Attestation I have personally seen and examined this patient.: Yes I have fully participated in the care of the patient.: Yes I have reviewed all pertinent clinical information, including history, physical exam and plan: Yes Notes (Text): 05/12/17 13:02 Patient was seen and examined with medical orderly. Agreed with resident assessment and plan. 62 yrs old male with PMH of HIV,ESRD on Hemodialysis, and alcohol abuse was admitted with change of mental status, was found to be septics, started on IV antibiotics vancomycin and zosyn.Patient was also found to be in alcohol withdrawal.Patient Ct chest showed left lower lobe Pneumonia, likely the etiology of sepsis.MRI was unremarkable Mental status has improved,blood cultures are negative for any growth. Echo is negative for any endocarditis, Management plan was discussed in detail with patient Education was provided.
--- NOTE | 2017-05-12 14:33 | CP.PCM.PN ---
Subjective - Date & Time of Evaluation Date of Evaluation: 05/12/17 Time of Evaluation: 14:31 - Subjective Subjective: pt is seen and examined, follow up consult is dictated #[id number] check psa, add flomax 0.4 mg po daily add nahco3 650 mg po tid, d/c protonix, add pepcid 20 mg po bid check 24 hr up,cr ,cr cl Objective - Vital Signs/Intake and Output Vital Signs (last 24 hours): Temp Pulse Resp BP Pulse Ox 99.0 F 91 H 20 139/68 98 05/12/17 12:00 05/12/17 12:00 05/12/17 12:00 05/12/17 12:00 05/12/17 06:00 Intake and Output: 05/12/17 05/12/17 06:59 18:59 Intake Total 2460 Output Total 975 Balance 1485 - Medications Medications: Current Medications Acetaminophen (Tylenol 325mg Tab) 650 mg PO Q6H PRN PRN Reason: Fever >100.4 F Last Admin: 05/11/17 16:14 Dose: 650 mg Folic Acid (Folic Acid) 1 mg PO DAILY [facility] Last Admin: 05/12/17 10:02 Dose: 1 mg Home Med (Home Med) 1 unit PO HS [facility] Last Admin: 05/11/17 22:06 Dose: Not Given Sodium Chloride (Sodium Chloride 0.9%) 1,000 mls @ 70 mls/hr IV .[id number] [facility] Last Admin: 05/12/17 04:14 Dose: 70 mls/hr Vancomycin HCl (Vancomycin 500mg In Ns) 500 mg in 100 mls @ 200 mls/hr IVPB DAILY [facility] PRN Reason: Protocol Last Admin: 05/12/17 11:11 Dose: 200 mls/hr Levofloxacin/Dextrose (Levaquin 250mg) 250 mg in 50 mls @ 100 mls/hr IVPB Q48H [facility] Last Admin: 05/12/17 14:24 Dose: 100 mls/hr Potassium Chloride (Potassium Chloride 10 Meq/100 Ml) 10 meq in 100 mls @ 100 mls/hr IVPB Q2H [facility] Stop: 05/12/17 14:59 Last Admin: 05/12/17 13:16 Dose: 100 mls/hr Lorazepam (Ativan) 0.5 mg PO Q4 [facility] PRN Reason: Protocol Last Admin: 05/12/17 13:41 Dose: Not Given Non-Formulary Medication (Emtricitabine [Emtriva]) 200 mg PO MoWe [facility] Pantoprazole Sodium (Protonix Inj) 40 mg IVP DAILY [facility] Last Admin: 05/12/17 10:02 Dose: 40 mg Tenofovir Disoproxil Fumarate (Viread) 300 mg PO MON [facility] Thiamine HCl (Vitamin B1 Tab) 50 mg PO DAILY [facility] Last Admin: 05/12/17 10:02 Dose: 50 mg - Labs Labs: 05/12/17 07:35 05/12/17 07:35 PT 12.1 Seconds (9.9-11.8) H 05/09/17 20:28 INR 1.12 (0.93-1.08) H 05/09/17 20:28 APTT 30.3 Seconds (23.7-30.8) 05/09/17 20:28
--- NOTE | 2017-05-12 16:54 | CP.PCM.PN ---
Subjective - Date & Time of Evaluation Date of Evaluation: 05/12/17 Time of Evaluation: 15:00 - Subjective Subjective: Infectious Disease Follow Up: May 12, 2017 62 yo male presenting with fevers for the past 4 days prior to hospitalization. Temperature was as high as 103.0 F. He had a near syncopal episode on Sunday. The patient was ESRD on HD and a history of HIV on HAART medications. Diphtheroids seen in blood cultures at [facility]. Gram variable rods on one blood culture. On Vancomycin, Rocephin, and Flagyl for treatment at this time. To give another vancomycin dose on next HD session. Organism identified as Listeria. On Vancomycin and was changed to Levaquin this morning by primary team. Clinically much better today. Still need to see current CD4 count... this was 187. Fevers are downtrending but still present. Objective - Vital Signs/Intake and Output Vital Signs (last 24 hours): Temp Pulse Resp BP Pulse Ox 99.0 F 95 H 20 139/68 98 05/12/17 12:00 05/12/17 14:00 05/12/17 12:00 05/12/17 12:00 05/12/17 06:00 Intake and Output: 05/12/17 05/12/17 06:59 18:59 Intake Total 2460 Output Total 975 Balance 1485 - Medications Medications: Current Medications Acetaminophen (Tylenol 325mg Tab) 650 mg PO Q6H PRN PRN Reason: Fever >100.4 F Last Admin: 05/11/17 16:14 Dose: 650 mg Folic Acid (Folic Acid) 1 mg PO DAILY [facility] Last Admin: 05/12/17 10:02 Dose: 1 mg Home Med (Home Med) 1 unit PO HS [facility] Last Admin: 05/11/17 22:06 Dose: Not Given Sodium Chloride (Sodium Chloride 0.9%) 1,000 mls @ 70 mls/hr IV .[id number] [facility] Last Admin: 05/12/17 04:14 Dose: 70 mls/hr Vancomycin HCl (Vancomycin 500mg In Ns) 500 mg in 100 mls @ 200 mls/hr IVPB DAILY [facility] PRN Reason: Protocol Last Admin: 05/12/17 11:11 Dose: 200 mls/hr Ampicillin 2 gm/ Sodium (Chloride) 100 mls @ 200 mls/hr IVPB Q6 [facility] PRN Reason: Protocol Lorazepam (Ativan) 0.5 mg PO Q4 [facility] PRN Reason: Protocol Last Admin: 05/12/17 13:41 Dose: Not Given Non-Formulary Medication (Emtricitabine [Emtriva]) 200 mg PO MoWe [facility] Pantoprazole Sodium (Protonix Inj) 40 mg IVP DAILY [facility] Last Admin: 05/12/17 10:02 Dose: 40 mg Sodium Bicarbonate (Sodium Bicarbonate Tab) 650 mg PO Q6 [facility] Tamsulosin HCl (Flomax) 0.4 mg PO DAILY [facility] Last Admin: 05/12/17 15:06 Dose: 0.4 mg Tenofovir Disoproxil Fumarate (Viread) 300 mg PO MON [facility] Thiamine HCl (Vitamin B1 Tab) 50 mg PO DAILY [facility] Last Admin: 05/12/17 10:02 Dose: 50 mg Vitamin B Complex/Vit C/Folic Acid (Nephro-Emili) 1 tab PO 0800 [facility] - Labs Labs: 05/12/17 07:35 05/12/17 07:35 PT 12.1 Seconds (9.9-11.8) H 05/09/17 20:28 INR 1.12 (0.93-1.08) H 05/09/17 20:28 APTT 30.3 Seconds (23.7-30.8) 05/09/17 20:28 - Constitutional Appears: Non-toxic, No Acute Distress, Chronically Ill - Head Exam Head Exam: ATRAUMATIC, NORMOCEPHALIC - Eye Exam Eye Exam: EOMI, PERRL Pupil Exam: NORMAL ACCOMODATION, PERRL - ENT Exam ENT Exam: Mucous Membranes Moist, Normal External Ear Exam, TM's Normal Bilaterally - Neck Exam Neck Exam: Full ROM, Normal Inspection - Respiratory Exam Respiratory Exam: Clear to Ausculation Bilateral, NORMAL BREATHING PATTERN. absent: Rales, Rhonchi, Wheezes - Cardiovascular Exam Cardiovascular Exam: REGULAR RHYTHM, RRR, +S1, +S2 - GI/Abdominal Exam GI & Abdominal Exam: Soft, Normal Bowel Sounds. absent: Distended, Tenderness - Extremities Exam Extremities Exam: Full ROM, Normal Inspection - Neurological Exam Neurological Exam: Alert, Awake, CN II-XII Intact, Oriented x3 - Psychiatric Exam Psychiatric exam: Normal Affect, Normal Mood - Skin Skin Exam: Intact, Normal Color Assessment and Plan - Assessment and Plan (Free Text) Assessment: 62 yo male with persistent fevers in history of HIV and ESRD on HD. The patient is taking Viread, Sustiva, and Emtriva for HAART. He states he is compliant with HAART. Supportive care. Continue on IV antibiotics of Vancomcyin, Rocephin, and Flagyl at this time. Check CD4 and HIV Viral load. Carias cultures. Chest X-ray showed no acute disease. Possible UTI. CD4 would provide more guidance on possible sources of the patient's fever. Diphtheroids in blood cultures from [facility]. Gram Variable Rods in one blood culture here... noted gram positive cocci in urine culture. Listeria is seen in the blood cultures at [facility]. Listeria seen here in urine culture. No lumbar puncture done so cannot confirm whether listeria meningitis is an issue. Will start and continue with high dose Ampicillin. He may require up to four weeks of treatment with Vancomycin and Ampicillin. Thank you for allowing me to participate in the care of the patient, we will follow with you.
[2017-05-12] MEDS: Ampicillin 2 GM in Sodium Chloride 0.9% 100 ML IVPB SCH ×2 (17:44→23:34)
--- NOTE | 2017-05-12 18:24 | PN ---
FOLLOWUP RENAL CONSULTATION The patient is located in room #263, bed #1. REQUESTED BY: Michaela Yun MD REASON FOR FOLLOWUP: Sepsis and end-stage renal disease, continuation of hemodialysis. SUBJECTIVE: The patient is a 62-year-old elderly male with a history of HIV positive and end-stage renal disease, on hemodialysis 2 times a week for the last 3 years. The patient is receiving dialysis in [facility], went on vacation , staying 4-5 days in his [place] home and eating stored meat, and the patient was found to be febrile and confused on admission at the dialysis center. The blood culture was drawn and [facility], and now blood cultures from the dialysis center are positive for diphtheroids and identified as Listeria and sensitivity is pending. The patient was also found to have urine culture in the hospital positive for Listeria and blood culture positive for gram-positive variables, identification is pending. The patient is feeling better, not in acute distress. Denies any chest pain, palpitation. Denies any fever. Denies any abdominal pain, nausea, vomiting, diarrhea. The patient is feeling much better now. PHYSICAL EXAMINATION GENERAL: The patient is a 62-year-old elderly male, moderately built, moderately nourished, not in any distress. VITAL SIGNS: As follows; blood pressure 139/68, pulse 91, respirations 20, temperature 99, saturation 98%. Height is 5 feet 7 inches and weight is 151 pounds. HEENT: Pupils normal and reactive to light and accommodation. Conjunctivae pink. Sclerae anicteric. Tongue is moist. NECK: Trachea is midline. CARDIOPULMONARY: [place] at the fifth intercostal space, midclavicular line. S1 and S2 audible. No murmur, no gallop. LUNGS: Symmetrical on both sides. Bilateral breath sounds present, clear on auscultation. ABDOMEN: Normal in appearance, soft, tympanic. No guarding. No rigidity. No hepatosplenomegaly. CENTRAL NERVOUS SYSTEM: The patient is alert, awake and oriented x3. Nonfocal neuro examination. Cranial nerves II through XII grossly intact. Sensory and motor system is within normal limits. EXTREMITIES: No cyanosis. No clubbing. No edema. LABORATORY DATA: Blood cultures from the dialysis center was positive for Listeria and blood cultures that is on 05/08/2017. Blood cultures from the hospital, one set, found to have gram-variable rods and identification is pending. Urine culture as of 05/10/2017 positive for Listeria monocytogenes and blood culture from 05/10 is pending, and as of 05/11/2017, stool for C. diff toxin is negative. Other laboratory data; as of 05/12/2017, WBC 5.8, hemoglobin 9.6, hematocrit is 28, platelets 117. Sodium 129, potassium 3.2, chloride 101, CO2 of 13, BUN 26, creatinine 2.5, calcium 7.0, phosphorus is 2.7, magnesium is 1.9, AST 79, ALT 35, alkaline phosphatase is 80 and C-reactive protein is more than 15, total protein 6.7 and albumin is 2.6. CURRENT MEDICATIONS: Include as follows; Ativan 0.4 mg p.o. q. 4 hours, Emtriva 200 mg p.o. Sunday and Sunday, folic acid 1 mg p.o. daily, levofloxacin 250 mg IV q. 48 hours, KCl 10 mEq IV piggyback x2 doses, Protonix 40 mg IV daily, IV fluids normal saline at 70 mL per hour, Tylenol, vancomycin 500 mg IV piggyback daily, tenofovir 300 mg p.o. Sunday, thiamine 50 mg p.o. daily and Zosyn 2.25 g IV piggyback x1 dose was given on 05/11/2017. ASSESSMENT AND PLAN: In summary, the patient is a 62-year-old elderly male with a history of HIV positive, end-stage renal disease, on tenofovir, was admitted with fever of more than 104, confusion, altered mental status and blood culture from the dialysis center is positive for Listeria and urine culture from the hospital is positive for Listeria monocytogenes with altered mental status and improving mental status now. 1. End-stage renal disease. It appears the patient has renal function at this time, GFR about 25% to 30%. We will try to hold the hemodialysis on Sunday. 2. 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 We will discuss with ID for possible switch of the medication. 3. Hypomagnesemia, magnesium is holding, supplement magnesium as needed. Consider to discontinuing PPI as PPIs can cause hypomagnesemia. Case discussed with Dr. Ochoa yesterday and today and notified Listeria culture report. Check 24-hour urine, protein, creatinine clearance again and also we will check PSA level and also we will add Flomax 0.4 mg p.o. daily. Thank you for allowing me to participate in your patient's care. Lesley Jacob MD MTDD
[2017-05-12] MEDS: EFAVIRENZ PO SCH (22:30)
[2017-05-13] MEDS: Ampicillin 2 GM in Sodium Chloride 0.9% 100 ML IVPB SCH ×3 (05:17→18:00)
[2017-05-13 07:19] LABS: HEMATOCRIT 27.1 % (42.0-52.0); MEAN CELL VOLUME 94.1 fL (80.0-105.0); MEAN CORPUSCULAR HEMOGLOBIN 32.3 pg (25.0-35.0); MEAN CORPUSCULAR HGB CONC 34.3 g/dl (31.0-37.0); MEAN PLATELET VOLUME 9.6 fl (7.0-11.0); RED CELL DISTRIBUTION WIDTH 13.7 % (11.5-14.5); WHITE BLOOD COUNT 4.4 10^3/ul (4.5-11.0)
[2017-05-13 07:30] LABS: ALB/GLOB RATIO 0.7 (1.1-1.8); BILIRUBIN,TOTAL 0.9 mg/dL (0.2-1.3); CALCIUM 7.2 mg/dL (8.4-10.5); MAGNESIUM 1.7 mg/dL (1.7-2.2); PHOSPHOROUS 2.1 mg/dL (2.5-4.5); POTASSIUM 3.4 mmol/L (3.6-5.0); TOTAL PROTEIN 6.3 g/dL (5.8-8.3)
[2017-05-13] MEDS: Multivitamin Vitamin B Complex (Nephro-Vite) Tab PO SCH (07:58)
[2017-05-13] MEDS: Vancomycin 500mg in NS 500 MG/100 ML BAG IVPB SCH (09:37)
--- NOTE | 2017-05-13 11:59 | CP.PCM.PN ---
<Magdaleno Rose - Last Filed: 05/13/17 11:56> Subjective - Date & Time of Evaluation Date of Evaluation: 05/13/17 Time of Evaluation: 09:00 - Subjective Subjective: Pt s/e at bedside. Pt much improved and is A/O x 4. Pt stated that he had a GI bug last 05/03, before being admitted. He further stated that he can handle a normal diet. Pt denies any n/v/d or f/ch. No further complaints at this time. Renal diet; fever resolved. CT Abdomen showed b/l infiltrates, so CT Chest was ordered, which showed LLL infiltrate. D/c'd flagyl, rocephin and added Levoquin. B/c show Listeria. Per ID, started on ampicillin and vanc. He will need for four weeks. Objective - Vital Signs/Intake and Output Vital Signs (last 24 hours): Temp Pulse Resp BP Pulse Ox 98.4 F 90 19 109/56 L 96 05/13/17 06:00 05/13/17 06:00 05/13/17 06:00 05/13/17 06:00 05/13/17 06:00 Intake and Output: 05/13/17 05/13/17 06:59 18:59 Intake Total 1390 Output Total 725 Balance 665 - Medications Medications: Current Medications Acetaminophen (Tylenol 325mg Tab) 650 mg PO Q6H PRN PRN Reason: Fever >100.4 F Last Admin: 05/11/17 16:14 Dose: 650 mg Folic Acid (Folic Acid) 1 mg PO DAILY [facility] Last Admin: 05/13/17 09:36 Dose: 1 mg Home Med (Home Med) 1 unit PO HS [facility] Last Admin: 05/12/17 22:30 Dose: Not Given Sodium Chloride (Sodium Chloride 0.9%) 1,000 mls @ 70 mls/hr IV .[id number] [facility] Last Admin: 05/12/17 04:14 Dose: 70 mls/hr Vancomycin HCl (Vancomycin 500mg In Ns) 500 mg in 100 mls @ 200 mls/hr IVPB DAILY [facility] PRN Reason: Protocol Last Admin: 05/13/17 09:37 Dose: 200 mls/hr Ampicillin 2 gm/ Sodium (Chloride) 100 mls @ 200 mls/hr IVPB Q6 [facility] PRN Reason: Protocol Last Admin: 05/13/17 05:17 Dose: 200 mls/hr Lorazepam (Ativan) 0.5 mg PO Q4 PRN; Protocol PRN Reason: Anxiety Non-Formulary Medication (Emtricitabine [Emtriva]) 200 mg PO MoWe [facility] Sodium Bicarbonate (Sodium Bicarbonate Tab) 650 mg PO Q6 [facility] Last Admin: 05/13/17 05:17 Dose: 650 mg Tamsulosin HCl (Flomax) 0.4 mg PO DAILY [facility] Last Admin: 05/13/17 09:36 Dose: 0.4 mg Tenofovir Disoproxil Fumarate (Viread) 300 mg PO MON [facility] Thiamine HCl (Vitamin B1 Tab) 50 mg PO DAILY [facility] Last Admin: 05/13/17 09:36 Dose: 50 mg Vitamin B Complex/Vit C/Folic Acid (Nephro-Emili) 1 tab PO 0800 [facility] Last Admin: 05/13/17 07:58 Dose: 1 tab - Labs Labs: 05/13/17 07:11 05/13/17 07:11 PT 12.1 Seconds (9.9-11.8) H 05/09/17 20:28 INR 1.12 (0.93-1.08) H 05/09/17 20:28 APTT 30.3 Seconds (23.7-30.8) 05/09/17 20:28 - Additional Findings Additional findings: Phys Exam: VS as above Constitutional: a&o x 4, nad Head and Neck: neck supple, no jvd, trachea midline, carotid midline, no cervical/head mass Eyes: zhao, nonicteric sclera, eom intact ENT: auditory acuity grossly intact, throat not congested, no nasal deformity Cardio: rrr, no m/r/g, no carotid bruit, nml s1, s2 Pulm: no accessory muscle use, equal nml breath sounds bilaterally, ctab Abd: s/nt/nd, nbs x 4 q, no palpable masses Derm: no rashes, no ulcers, no lesions Extr: no edema, no cyanosis, no calf tenderness, no lesions, no varicosities Neuro: cn II-XII grossly intact, ue and le 5/5 muscle strength bilaterally, no los ue, le bilaterally and core Assessment and Plan - Assessment and Plan (Free Text) Assessment: Mr. Carroll is a 62 y/o M with a PMHx significant specifically for HIV who presented with c/o Fever. 1. Fever likely 2/2 HCAP VS Listeria VS Unknown Etiology - Neuro c/s: Meningitis unlikely; if still desire LP, do under fluoroscopy given HIV status - ID consulted: R/o endocarditis if diphtheroids seen in blood cultures, found at [facility] - Nephro c/s: Continue HD twice a week - MRI Brain: Mild chronic microangiopathic changes, age-related parenchymal volume loss - CT Abd/P: Bibasilar infiltrates; Cholelithiasis - CXR: No acute disease - ECHO: Negative besides transmitral abnormal relaxation Grade I. LVEF: >50%. - Urine cultures: Gram pos cocci - Blood cultures: negative - Hep Panel: A, B Negative; C POSITIVE - CMV + - Tylenol prn for fever - Vanc and Levaquin for possible HCAP (Pt is on dialysis) - F/u C. diff, fecal leukocytes, stool culture, ova and parasites - F/u CT Chest: Showed LLL infiltrate, possibly infectious - F/u TSH: 0.76, NML - If patient feels better clinically, and pending ID approval, may be discharged with o/p ABx 2. Hypokalemia - 3.4 today, repleted. Should be 3.6 tomorrow, follow - Trend, replete as necessary 3. Hypophosphatemia - Phos 1.3, repleted with Neutra-phos - Trend Phos, replete as necessary 4. HIV - Cont home meds: Sustiva, Emtriva, Viread 5. ESRD - Cont HD, Tu and Th - Avoid nephrotoxic medications - Per Nephro: NaHCO3 tablets 650 mg po tid - Per Nephro: F/U 24 hr urine protein, urine creatinine, and creatinine clearance 6. GI/DVT PPx - Protonix d/c'd: Now Pepcid - SCDs <Jama ZAYAS,Michaela - Last Filed: 05/13/17 13:04> Objective - Vital Signs/Intake and Output Vital Signs (last 24 hours): Temp Pulse Resp BP Pulse Ox 98 F 87 20 122/68 96 05/13/17 12:00 05/13/17 12:00 05/13/17 12:00 05/13/17 12:00 05/13/17 06:00 Intake and Output: 05/13/17 05/13/17 06:59 18:59 Intake Total 1390 Output Total 725 Balance 665 - Medications Medications: Current Medications Acetaminophen (Tylenol 325mg Tab) 650 mg PO Q6H PRN PRN Reason: Fever >100.4 F Last Admin: 05/11/17 16:14 Dose: 650 mg Famotidine (Pepcid) 40 mg PO [facility] Folic Acid (Folic Acid) 1 mg PO DAILY [facility] Last Admin: 05/13/17 09:36 Dose: 1 mg Home Med (Home Med) 1 unit PO [facility] Last Admin: 05/12/17 22:30 Dose: Not Given Sodium Chloride (Sodium Chloride 0.9%) 1,000 mls @ 70 mls/hr IV .[id number] [facility] Last Admin: 05/12/17 04:14 Dose: 70 mls/hr Vancomycin HCl (Vancomycin 500mg In Ns) 500 mg in 100 mls @ 200 mls/hr IVPB DAILY [facility] PRN Reason: Protocol Last Admin: 05/13/17 09:37 Dose: 200 mls/hr Ampicillin 2 gm/ Sodium (Chloride) 100 mls @ 200 mls/hr IVPB Q6 [facility] PRN Reason: Protocol Last Admin: 05/13/17 11:53 Dose: 200 mls/hr Lorazepam (Ativan) 0.5 mg PO Q4 PRN; Protocol PRN Reason: Anxiety Non-Formulary Medication (Emtricitabine [Emtriva]) 200 mg PO MoWe [facility] Sodium Bicarbonate (Sodium Bicarbonate Tab) 650 mg PO Q6 [facility] Last Admin: 05/13/17 11:53 Dose: 650 mg Tamsulosin HCl (Flomax) 0.4 mg PO DAILY [facility] Last Admin: 05/13/17 09:36 Dose: 0.4 mg Tenofovir Disoproxil Fumarate (Viread) 300 mg PO MON [facility] Thiamine HCl (Vitamin B1 Tab) 50 mg PO DAILY [facility] Last Admin: 05/13/17 09:36 Dose: 50 mg Vitamin B Complex/Vit C/Folic Acid (Nephro-Emili) 1 tab PO 0800 [facility] Last Admin: 05/13/17 07:58 Dose: 1 tab - Labs Labs: 05/13/17 07:11 05/13/17 07:11 PT 12.1 Seconds (9.9-11.8) H 05/09/17 20:28 INR 1.12 (0.93-1.08) H 05/09/17 20:28 APTT 30.3 Seconds (23.7-30.8) 05/09/17 20:28 Attending/Attestation - Attestation I have personally seen and examined this patient.: Yes I have fully participated in the care of the patient.: Yes I have reviewed all pertinent clinical information, including history, physical exam and plan: Yes Notes (Text): 05/13/17 13:03 Patient was seen and examined with electromedical equipment technician. Agreed with resident assessment and plan. 62 yrs old male with PMH of HIV,ESRD on Hemodialysis, and alcohol abuse was admitted with change of mental status, was found to be septic, started on IV antibiotics vancomycin and zosyn.Patient was also found to be in alcohol withdrawal.Patient CT chest showed left lower lobe Pneumonia, MRI was unremarkable. Listeria is seen in the blood cultures at [facility]. Listeria is also seen here in urine culture as well in the initial blood cultures which were drawn at the time of admission,(was reported today), we will continue Ampicillin and VancomycinWe will repeat blood cultures and will also ask IR for Lumber Puncture. ID Follow up is appreciated. Mental status has improved,blood cultures are negative for any growth. Echo is negative for any endocarditis, Management plan was discussed in detail with patient Education was provided.
[2017-05-13] MEDS ORDERED: Potassium Chloride 20 mEq ER Tab PO ONE (12:07)
--- NOTE | 2017-05-13 18:05 | CP.PCM.PN ---
Subjective - Date & Time of Evaluation Date of Evaluation: 05/13/17 Time of Evaluation: 17:00 - Subjective Subjective: Infectious Disease Follow Up: May 13, 2017 62 yo male presenting with fevers for the past 4 days prior to hospitalization. Temperature was as high as 103.0 F. He had a near syncopal episode on Sunday. The patient was ESRD on HD and a history of HIV on HAART medications. Diphtheroids seen in blood cultures at [facility]. Gram variable rods on one blood culture. Organism identified as Listeria. On Ampicillin for treatment. Can consider addition of Vancomycin as patient is ESRD on HD, but Vancomycin is not a first line drug for Listeria. Clinically much better today. Still need to see current CD4 count... this was 174 on a repeat check. Afebrile on Ampicillin. Objective - Vital Signs/Intake and Output Vital Signs (last 24 hours): Temp Pulse Resp BP Pulse Ox 98 F 87 20 122/68 96 05/13/17 12:00 05/13/17 12:00 05/13/17 12:00 05/13/17 12:00 05/13/17 06:00 Intake and Output: 05/13/17 05/13/17 06:59 18:59 Intake Total 1390 Output Total 725 Balance 665 - Medications Medications: Current Medications Acetaminophen (Tylenol 325mg Tab) 650 mg PO Q6H PRN PRN Reason: Fever >100.4 F Last Admin: 05/11/17 16:14 Dose: 650 mg Famotidine (Pepcid) 40 mg PO [facility] Folic Acid (Folic Acid) 1 mg PO DAILY [facility] Last Admin: 05/13/17 09:36 Dose: 1 mg Home Med (Home Med) 1 unit PO [facility] Last Admin: 05/12/17 22:30 Dose: Not Given Sodium Chloride (Sodium Chloride 0.9%) 1,000 mls @ 70 mls/hr IV .[id number] [facility] Last Admin: 05/12/17 04:14 Dose: 70 mls/hr Vancomycin HCl (Vancomycin 500mg In Ns) 500 mg in 100 mls @ 200 mls/hr IVPB DAILY [facility] PRN Reason: Protocol Last Admin: 05/13/17 09:37 Dose: 200 mls/hr Ampicillin 2 gm/ Sodium (Chloride) 100 mls @ 200 mls/hr IVPB Q6 [facility] PRN Reason: Protocol Last Admin: 05/13/17 11:53 Dose: 200 mls/hr Lorazepam (Ativan) 0.5 mg PO Q4 PRN; Protocol PRN Reason: Anxiety Non-Formulary Medication (Emtricitabine [Emtriva]) 200 mg PO MoWe [facility] Sodium Bicarbonate (Sodium Bicarbonate Tab) 650 mg PO Q6 [facility] Last Admin: 05/13/17 11:53 Dose: 650 mg Tamsulosin HCl (Flomax) 0.4 mg PO DAILY [facility] Last Admin: 05/13/17 09:36 Dose: 0.4 mg Tenofovir Disoproxil Fumarate (Viread) 300 mg PO MON [facility] Thiamine HCl (Vitamin B1 Tab) 50 mg PO DAILY [facility] Last Admin: 05/13/17 09:36 Dose: 50 mg Vitamin B Complex/Vit C/Folic Acid (Nephro-Emili) 1 tab PO 0800 [facility] Last Admin: 05/13/17 07:58 Dose: 1 tab - Labs Labs: 05/13/17 07:11 05/13/17 07:11 PT 12.1 Seconds (9.9-11.8) H 05/09/17 20:28 INR 1.12 (0.93-1.08) H 05/09/17 20:28 APTT 30.3 Seconds (23.7-30.8) 05/09/17 20:28 - Constitutional Appears: Non-toxic, No Acute Distress, Chronically Ill - Head Exam Head Exam: ATRAUMATIC, NORMOCEPHALIC - Eye Exam Eye Exam: EOMI, PERRL Pupil Exam: NORMAL ACCOMODATION, PERRL - ENT Exam ENT Exam: Mucous Membranes Moist, Normal External Ear Exam, TM's Normal Bilaterally - Neck Exam Neck Exam: Full ROM, Normal Inspection - Respiratory Exam Respiratory Exam: Clear to Ausculation Bilateral, NORMAL BREATHING PATTERN. absent: Rales, Rhonchi, Wheezes - Cardiovascular Exam Cardiovascular Exam: REGULAR RHYTHM, RRR, +S1, +S2 - GI/Abdominal Exam GI & Abdominal Exam: Soft, Normal Bowel Sounds. absent: Distended, Tenderness - Extremities Exam Extremities Exam: Full ROM, Normal Inspection - Neurological Exam Neurological Exam: Alert, Awake, CN II-XII Intact, Oriented x3 - Psychiatric Exam Psychiatric exam: Normal Affect, Normal Mood Assessment and Plan - Assessment and Plan (Free Text) Assessment: 62 yo male with persistent fevers in history of HIV and ESRD on HD. The patient is taking Viread, Sustiva, and Emtriva for HAART. He states he is compliant with HAART. Supportive care. Continue on IV antibiotics of Vancomcyin, Rocephin, and Flagyl at this time. Check CD4 and HIV Viral load. Carias cultures. Chest X-ray showed no acute disease. Possible UTI. CD4 would provide more guidance on possible sources of the patient's fever. Diphtheroids in blood cultures from [facility]. Gram Variable Rods in one blood culture here... noted gram positive cocci in urine culture. Listeria identified in blood and urine on cultures done yet. Listeria is seen in the blood cultures at [facility]. Listeria seen here in urine culture. No lumbar puncture done so cannot confirm whether listeria meningitis is an issue. Will start and continue with high dose Ampicillin. He may require up to four weeks of treatment with Ampicillin to cover for Listeria meningitis. Would still consider LP although the yield for diagnosing listeria meningitis at this point would be extremely low. LP at this point in time can only be used to rule in Listeria and NOT rule out. Thank you for allowing me to participate in the care of the patient, we will follow with you.
[2017-05-13] MEDS: EFAVIRENZ PO SCH (21:47)
[2017-05-14] MEDS: Ampicillin 2 GM in Sodium Chloride 0.9% 100 ML IVPB SCH ×5 (01:08→23:06)
[2017-05-14] MEDS: Sodium Chloride 0.9% 1,000 ML IV SCH ×2 (05:33→12:33)
[2017-05-14 07:42] LABS: MEAN CELL VOLUME 93.5 fL (80.0-105.0); MEAN CORPUSCULAR HEMOGLOBIN 32.4 pg (25.0-35.0); MEAN CORPUSCULAR HGB CONC 34.6 g/dl (31.0-37.0); MEAN PLATELET VOLUME 9.5 fl (7.0-11.0); RED CELL DISTRIBUTION WIDTH 13.6 % (11.5-14.5); WHITE BLOOD COUNT 5.3 10^3/ul (4.5-11.0)
[2017-05-14 07:51] LABS: ALB/GLOB RATIO 0.6 (1.1-1.8); BILIRUBIN,TOTAL 1.1 mg/dL (0.2-1.3); CALCIUM 7.4 mg/dL (8.4-10.5); TOTAL PROTEIN 6.5 g/dL (5.8-8.3)
[2017-05-14 07:54] LABS: POTASSIUM 2.8 mmol/L (3.6-5.0)
[2017-05-14] MEDS ORDERED: Potassium Chloride 20 mEq ER Tab PO ONE ×2 (09:08→12:15)
[2017-05-14] MEDS: Multivitamin Vitamin B Complex (Nephro-Vite) Tab PO SCH (09:53)
[2017-05-14] MEDS: Vancomycin 500mg in NS 500 MG/100 ML BAG IVPB SCH (09:54)
[2017-05-14] MEDS ORDERED: EMTRICITABINE 200 MG PO SCH (10:00)
[2017-05-14] MEDS ORDERED: Magnesium Sulfate 2 GM in Sodium Chloride 0.9% 100 ML IVPB ONE (12:15)
--- NOTE | 2017-05-14 12:15 | CP.PCM.PN ---
Subjective - Date & Time of Evaluation Date of Evaluation: 05/14/17 Time of Evaluation: 12:13 - Subjective Subjective: pt seen and examined, follow up consult is dictated 1. ckd-4 2. hypokalemia, met. acidosis 3. r/o fanconi syndrome sec to Tenofovir will hold hd consider to switch tenfovir to some other antiretroviral supplement k+, bicarb, mg as needed #[id number] Objective - Vital Signs/Intake and Output Vital Signs (last 24 hours): Temp Pulse Resp BP Pulse Ox 99 F 90 21 133/90 98 05/14/17 07:44 05/14/17 07:44 05/14/17 07:44 05/14/17 07:44 05/14/17 07:44 Intake and Output: 05/14/17 05/14/17 06:59 18:59 Intake Total 1880 480 Output Total 200 1000 Balance 1680 -520 - Medications Medications: Current Medications Acetaminophen (Tylenol 325mg Tab) 650 mg PO Q6H PRN PRN Reason: Fever >100.4 F Last Admin: 05/11/17 16:14 Dose: 650 mg Famotidine (Pepcid) 40 mg PO HS [facility] Last Admin: 05/13/17 21:47 Dose: 40 mg Folic Acid (Folic Acid) 1 mg PO DAILY [facility] Last Admin: 05/14/17 09:52 Dose: 1 mg Home Med (Home Med) 1 unit PO [facility] Last Admin: 05/13/17 21:47 Dose: Not Given Sodium Chloride (Sodium Chloride 0.9%) 1,000 mls @ 70 mls/hr IV .[id number] [facility] Last Admin: 05/14/17 05:33 Dose: 70 mls/hr Vancomycin HCl (Vancomycin 500mg In Ns) 500 mg in 100 mls @ 200 mls/hr IVPB DAILY [facility] PRN Reason: Protocol Last Admin: 05/14/17 09:54 Dose: 200 mls/hr Ampicillin 2 gm/ Sodium (Chloride) 100 mls @ 200 mls/hr IVPB Q6 [facility] PRN Reason: Protocol Last Admin: 05/14/17 10:59 Dose: 200 mls/hr Lorazepam (Ativan) 0.5 mg PO Q4 PRN; Protocol PRN Reason: Anxiety Non-Formulary Medication (Emtricitabine [Emtriva]) 200 mg PO MoWe [facility] Sodium Bicarbonate (Sodium Bicarbonate Tab) 650 mg PO Q6 [facility] Last Admin: 05/14/17 05:32 Dose: 650 mg Tamsulosin HCl (Flomax) 0.4 mg PO DAILY [facility] Last Admin: 05/14/17 09:52 Dose: 0.4 mg Tenofovir Disoproxil Fumarate (Viread) 300 mg PO MON [facility] Last Admin: 05/14/17 09:54 Dose: 300 mg Thiamine HCl (Vitamin B1 Tab) 50 mg PO DAILY [facility] Last Admin: 05/14/17 09:54 Dose: 50 mg Vitamin B Complex/Vit C/Folic Acid (Nephro-Emili) 1 tab PO 0800 [facility] Last Admin: 05/14/17 09:53 Dose: 1 tab - Labs Labs: 05/14/17 07:00 05/14/17 08:00 PT 12.1 Seconds (9.9-11.8) H 05/09/17 20:28 INR 1.12 (0.93-1.08) H 05/09/17 20:28 APTT 30.3 Seconds (23.7-30.8) 05/09/17 20:28
[2017-05-14] MEDS ORDERED: Lidocaine 2% Inj (20ml) ONE (13:01)
--- NOTE | 2017-05-14 14:51 | CP.PCM.PN ---
<RomeoJihan - Last Filed: 05/14/17 15:09> Subjective - Date & Time of Evaluation Date of Evaluation: 05/14/17 Time of Evaluation: 08:49 - Subjective Subjective: Progress Note for Dr. Jennings PT S&E examined at bedside. No acute changes overnight. Patient got a midline placed by IR today. Patient denies F/C, N/V, C/D Patient tolerated normal diet. No further complaints. Objective - Vital Signs/Intake and Output Vital Signs (last 24 hours): Temp Pulse Resp BP Pulse Ox 99 F 90 21 133/90 98 05/14/17 07:44 05/14/17 07:44 05/14/17 07:44 05/14/17 07:44 05/14/17 07:44 Intake and Output: 05/14/17 05/14/17 06:59 18:59 Intake Total 1880 480 Output Total 200 1000 Balance 1680 -520 - Medications Medications: Current Medications Acetaminophen (Tylenol 325mg Tab) 650 mg PO Q6H PRN PRN Reason: Fever >100.4 F Last Admin: 05/11/17 16:14 Dose: 650 mg Famotidine (Pepcid) 40 mg PO HS [facility] Last Admin: 05/13/17 21:47 Dose: 40 mg Folic Acid (Folic Acid) 1 mg PO DAILY [facility] Last Admin: 05/14/17 09:52 Dose: 1 mg Home Med (Home Med) 1 unit PO HS [facility] Last Admin: 05/13/17 21:47 Dose: Not Given Sodium Chloride (Sodium Chloride 0.9%) 1,000 mls @ 70 mls/hr IV .[id number] [facility] Last Admin: 05/14/17 12:33 Dose: 70 mls/hr Vancomycin HCl (Vancomycin 500mg In Ns) 500 mg in 100 mls @ 200 mls/hr IVPB DAILY [facility] PRN Reason: Protocol Last Admin: 05/14/17 09:54 Dose: 200 mls/hr Ampicillin 2 gm/ Sodium (Chloride) 100 mls @ 200 mls/hr IVPB Q6 [facility] PRN Reason: Protocol Last Admin: 05/14/17 10:59 Dose: 200 mls/hr Lorazepam (Ativan) 0.5 mg PO Q4 PRN; Protocol PRN Reason: Anxiety Non-Formulary Medication (Emtricitabine [Emtriva]) 200 mg PO MoWe [facility] Last Admin: 05/14/17 12:33 Dose: Not Given Sodium Bicarbonate (Sodium Bicarbonate Tab) 1,300 mg PO Q6 [facility] Tamsulosin HCl (Flomax) 0.4 mg PO DAILY [facility] Last Admin: 05/14/17 09:52 Dose: 0.4 mg Tenofovir Disoproxil Fumarate (Viread) 300 mg PO MON [facility] Last Admin: 05/14/17 12:35 Dose: Not Given Thiamine HCl (Vitamin B1 Tab) 50 mg PO DAILY [facility] Last Admin: 05/14/17 09:54 Dose: 50 mg Vitamin B Complex/Vit C/Folic Acid (Nephro-Emili) 1 tab PO 0800 [facility] Last Admin: 05/14/17 09:53 Dose: 1 tab - Labs Labs: 05/14/17 07:00 05/14/17 08:00 PT 12.1 Seconds (9.9-11.8) H 05/09/17 20:28 INR 1.12 (0.93-1.08) H 05/09/17 20:28 APTT 30.3 Seconds (23.7-30.8) 05/09/17 20:28 - Constitutional Appears: Non-toxic - Head Exam Head Exam: NORMAL INSPECTION - Eye Exam Eye Exam: EOMI, Normal appearance - ENT Exam ENT Exam: Mucous Membranes Moist - Neck Exam Neck Exam: Full ROM, Normal Inspection - Respiratory Exam Respiratory Exam: NORMAL BREATHING PATTERN. absent: Accessory Muscle Use, Respiratory Distress - Cardiovascular Exam Cardiovascular Exam: REGULAR RHYTHM - GI/Abdominal Exam GI & Abdominal Exam: Soft, Normal Bowel Sounds. absent: Distended, Firm, Tenderness - Extremities Exam Extremities Exam: Full ROM, Normal Capillary Refill, Normal Inspection. absent : Pedal Edema Additional comments: left arm fistula - Skin Skin Exam: Dry, Intact, Normal Color, Warm Assessment and Plan - Assessment and Plan (Free Text) Assessment: 62 M ESRD on HD and HIV. Plan: monitor midline for signs of infection, induration, purulence discharge with 4 weeks on ampicillin f/u Potassium levels PM labs monitor CBC, CMP, ESR, CRP wait for case management to determine placement of patient at an [facility]. <Jama ZAYAS,Michaela - Last Filed: 05/18/17 08:19> Objective - Vital Signs/Intake and Output Vital Signs (last 24 hours): Temp Pulse Resp BP Pulse Ox 98.3 F 99 H 20 132/66 97 05/15/17 08:02 05/15/17 08:02 05/15/17 08:02 05/15/17 08:02 05/15/17 08:02 - Labs Labs: 05/15/17 06:30 05/15/17 12:38 PT 12.1 Seconds (9.9-11.8) H 05/09/17 20:28 INR 1.12 (0.93-1.08) H 05/09/17 20:28 APTT 30.3 Seconds (23.7-30.8) 05/09/17 20:28 Attending/Attestation - Attestation I have personally seen and examined this patient.: Yes I have fully participated in the care of the patient.: Yes I have reviewed all pertinent clinical information, including history, physical exam and plan: Yes Notes (Text): 05/18/17 08:16 Patient was seen and examined with medical center manager. Agreed with resident assessment and plan. 62 yrs old male with PMH of HIV,ESRD on Hemodialysis, and alcohol abuse was admitted with change of mental status, was found to be septic, started on IV antibiotics vancomycin and zosyn.Patient was also found to be in alcohol withdrawal.Patient CT chest showed left lower lobe Pneumonia, MRI was unremarkable. Listeria is seen in the blood cultures at [facility]. Listeria is also seen here in urine culture as well in the initial blood cultures which were drawn at the time of admission,(was reported today), we will continue Ampicillin .Repeat blood cultures are negative.We will get Mid line .Patient will need total 4 weeks of antibiotics for possible Listeria Meningitis.ID Follow up is appreciated. Mental status has improved,blood cultures are negative for any growth. Echo is negative for any endocarditis, Management plan was discussed in detail with patient Education was provided.
--- NOTE | 2017-05-14 17:47 | CP.PCM.PN ---
Subjective - Date & Time of Evaluation Date of Evaluation: 05/14/17 Time of Evaluation: 16:30 - Subjective Subjective: Infectious Disease Follow Up: May 14, 2017 62 yo male presenting with fevers for the past 4 days prior to hospitalization. Temperature was as high as 103.0 F. He had a near syncopal episode on Sunday. The patient was ESRD on HD and a history of HIV on HAART medications. Dip[place] [facility] [place] rods on one blood culture. Organism identified as Listeria. On Ampicillin for treatment. Can consider addition of Vancomycin as patient is ESRD on HD, but Vancomycin is not a first line drug for Listeria. Clinically much better today. Current CD4 count... this was 174 on a repeat check. Afebrile on Ampicillin. On Ampicillin for listeria treatment. Objective - Vital Signs/Intake and Output Vital Signs (last 24 hours): Temp Pulse Resp BP Pulse Ox 99 F 90 21 133/90 98 05/14/17 07:44 05/14/17 07:44 05/14/17 07:44 05/14/17 07:44 05/14/17 07:44 Intake and Output: 05/14/17 05/14/17 06:59 18:59 Intake Total 1880 780 Output Total 200 1625 Balance 1680 -845 - Medications Medications: Current Medications Acetaminophen (Tylenol 325mg Tab) 650 mg PO Q6H PRN PRN Reason: Fever >100.4 F Last Admin: 05/11/17 16:14 Dose: 650 mg Famotidine (Pepcid) 40 mg PO [facility] Last Admin: 05/13/17 21:47 Dose: 40 mg Folic Acid (Folic Acid) 1 mg PO DAILY [facility] Last Admin: 05/14/17 09:52 Dose: 1 mg Home Med (Home Med) 1 unit PO [facility] Last Admin: 05/13/17 21:47 Dose: Not Given Sodium Chloride (Sodium Chloride 0.9%) 1,000 mls @ 70 mls/hr IV .[id number] [facility] Last Admin: 05/14/17 12:33 Dose: 70 mls/hr Vancomycin HCl (Vancomycin 500mg In Ns) 500 mg in 100 mls @ 200 mls/hr IVPB DAILY [facility] PRN Reason: Protocol Last Admin: 05/14/17 09:54 Dose: 200 mls/hr Ampicillin 2 gm/ Sodium (Chloride) 100 mls @ 200 mls/hr IVPB Q6 [facility] PRN Reason: Protocol Last Admin: 05/14/17 17:14 Dose: 200 mls/hr Lorazepam (Ativan) 0.5 mg PO Q4 PRN; Protocol PRN Reason: Anxiety Non-Formulary Medication (Emtricitabine [Emtriva]) 200 mg PO [facility]We [facility] Last Admin: 05/14/17 12:33 Dose: Not Given Sodium Bicarbonate (Sodium Bicarbonate Tab) 1,300 mg PO Q6 [facility] Last Admin: 05/14/17 17:17 Dose: 1,300 mg Tamsulosin HCl (Flomax) 0.4 mg PO DAILY [facility] Last Admin: 05/14/17 09:52 Dose: 0.4 mg Tenofovir Disoproxil Fumarate (Viread) 300 mg PO MON [facility] Last Admin: 05/14/17 12:35 Dose: Not Given Thiamine HCl (Vitamin B1 Tab) 50 mg PO DAILY [facility] Last Admin: 05/14/17 09:54 Dose: 50 mg Vitamin B Complex/Vit C/Folic Acid (Nephro-Emili) 1 tab PO 0800 [facility] Last Admin: 05/14/17 09:53 Dose: 1 tab - Labs Labs: 05/14/17 07:00 05/14/17 16:00 PT 12.1 Seconds (9.9-11.8) H 05/09/17 20:28 INR 1.12 (0.93-1.08) H 05/09/17 20:28 APTT 30.3 Seconds (23.7-30.8) 05/09/17 20:28 - Constitutional Appears: Non-toxic, No Acute Distress, Chronically Ill - Head Exam Head Exam: ATRAUMATIC, NORMOCEPHALIC - Eye Exam Eye Exam: EOMI, PERRL Pupil Exam: NORMAL ACCOMODATION, PERRL - ENT Exam ENT Exam: Mucous Membranes Moist, Normal External Ear Exam, TM's Normal Bilaterally - Neck Exam Neck Exam: Full ROM, Normal Inspection - Respiratory Exam Respiratory Exam: Clear to Ausculation Bilateral, NORMAL BREATHING PATTERN. absent: Rales, Rhonchi, Wheezes - Cardiovascular Exam Cardiovascular Exam: REGULAR RHYTHM, RRR, +S1, +S2 - GI/Abdominal Exam GI & Abdominal Exam: Soft, Normal Bowel Sounds. absent: Distended, Tenderness - Extremities Exam Extremities Exam: Full ROM, Normal Inspection - Neurological Exam Neurological Exam: Alert, Awake, CN II-XII Intact, Oriented x3 - Psychiatric Exam Psychiatric exam: Normal Affect, Normal Mood - Skin Skin Exam: Intact, Normal Color Assessment and Plan - Assessment and Plan (Free Text) Assessment: 62 yo male with persistent fevers in history of HIV and ESRD on HD. The patient is taking Viread, Sustiva, and Emtriva for HAART. He states he is compliant with HAART. Supportive care. Continue on IV antibiotics of Vancomcyin, Rocephin, and Flagyl at this time. Check CD4 and HIV Viral load. Carias cultures. Chest X-ray showed no acute disease. Possible UTI. CD4 would provide more guidance on possible sources of the patient's fever. Diphtheroids in blood cultures from [facility]. Gram Variable Rods in one blood culture here... noted gram positive cocci in urine culture. Listeria identified in blood and urine on cultures done yet. Listeria is seen in the blood cultures at [facility]. Listeria seen here in urine culture. No lumbar puncture done so cannot confirm whether listeria meningitis is an issue. Will start and continue with high dose Ampicillin. He may require up to four weeks of treatment with Ampicillin to cover for Listeria meningitis. Would still consider LP although the yield for diagnosing listeria meningitis at this point would be extremely low. LP at this point in time can only be used to rule in Listeria and NOT rule out. Chronic Kidney Disease Stage IV - Renal questioning on whether it is secondary to Tenofovir. This could be a possibility although the circumstances of how and the choice of antiretrovirals for the patient when he was started on this regimen is not clear to me and well as the baseline renal function at this time. Thank you for allowing me to participate in the care of the patient, we will follow with you.
--- NOTE | 2017-05-14 19:26 | VASCULAR ---
PROCEDURE: Ultrasound and fluoroscopically placed right upper extremity PICC line. HISTORY: Sepsis. HIV positive. Dialysis. Long-term IV antibiotics. Needs PICC line. PHYSICIAN(S): Reno Drake MD. TECHNIQUE: The relative risks and indications of the procedure were explained to the patient and consent obtained. The patient was placed supine on the arteriogram table and the right arm prepped and draped in the usual sterile fashion. A tourniquet was applied to the right axilla. 1% Xylocaine was used to anesthetize the skin and soft tissues at the puncture site above the elbow. The right basilic vein was punctured under direct ultrasound guidance with a micropuncture set. A 0.018 guidewire was advanced centrally and used to measure the length to the SVC/RA junction. A 5 Chinese single-lumen PICC line 42 cm long was advanced to the SVC/RA junction. The catheter was flushed and secured. The patient tolerated the procedure well. IMPRESSION: 1. Ultrasound and fluoroscopically placed right upper extremity PICC line. A 5 Chinese single-lumen PICC line 42 cm long was advanced to the SVC/RA junction.
[2017-05-14] MEDS: EFAVIRENZ PO SCH (23:06)
--- NOTE | 2017-05-15 02:40 | PN ---
DATE: 05/14/2017 LOCATION: The patient is located in room 363, bed #2. REQUESTED BY: Michaela Yun MD REASON FOR FOLLOWUP: Renal failure for a condition of hemodialysis and Listeria sepsis. HISTORY OF PRESENT ILLNESS: Mr. Carroll is a 62-year-old, male with a history of HIV positive renal failure and hemodialysis for the last 3 years who was admitted with chief complaints of fever, weakness, and altered mental status and found to have Listeria in the blood cultures. From the dialysis center and also patient was found to have Listeria monocytogenes in the blood culture from 05/09/2017 in the hospital and also urine culture also positive for Listeria monocytogenes. Patient is on IV antibiotics. Antibiotic was adjusted as per ID that go to cover Listeria and patient feels much better, not in acute distress. Denies any headaches or dizziness. Denies any chest pain, palpitations. Denies any fever or cough. No abdominal pain. No nausea, vomiting, or diarrhea. PHYSICAL EXAMINATION: VITAL SIGNS: As follows: Blood pressure 133/90, pulse 90, respirations 21, temperature 99, and saturation 98%. Height 5 feet 7 inches and weight is 163 pounds. GENERAL: Mr. Carroll is a 62 years old male, moderately built, moderately nourished, not in distress. HEENT: Pupils are normal, reactive to light and accommodation. Conjunctivae are slightly pale. Sclerae anicteric. Tongue is moist. Trachea is midline. LUNGS: Symmetrical on both sides. Bilateral breath sounds present. Clear on auscultation. CARDIOVASCULAR: [place] at the fifth intercostal space, midclavicular line. S1 and S2 audible. No murmur or gallop. ABDOMEN: Normal in appearance, soft and tympanic. No guarding. No rigidity. No hepatosplenomegaly. 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 Nonfocal on examination. EXTREMITIES: No cyanosis. No clubbing. No edema. CURRENT MEDICATIONS: Include as follows: Ampicillin 2 g IV q. 6 hours, Ativan 0.1 mg p.o. q. 4 hours p.r.n., Emtriva 200 mg p.o. Sunday and Sunday, Flomax 0.4 mg p.o. daily, folic acid 1 mg p.o. daily, Nephro-Emili one tablet p.o. daily, and Pepcid 40 mg p.o. at bedtime, Sustiva one capsule daily, sodium bicarbonate 650 mg p.o. q. 6 hours, IV fluids normal saline at 70 mL/h, vancomycin 100 mg IV, piggyback daily, Tenofovir 300 mg p.o., thiamine 50 mg p.o. daily, and potassium chloride 20 mEq p.o. one times one dose, potassium chloride IV piggyback 10 mEq x1 dose. LABORATORY DATA: His laboratory data include as follows. As of 05/14/2017, WBC 5.3, hemoglobin 9, hematocrit is 26, and platelet is 141. Sodium is 135, potassium 2.8, chloride 111, CO2 13, BUN 23, creatinine 2.1, glucose 91, and calcium 7.4. Magnesium as on 05/13/2017 is 1.7. Total bilirubin 1.1, AST 71, ALT 32, alkaline phosphatase 90. A 24-hour urine volume is 90 and 100 ml and creatinine clearance is 23 ml/minute. His CD4 count is 174. Another report of urine analysis as of 05/10/2017, yellow, cloudy, pH 8, specific gravity 1015, protein 100, glucose negative, ketones trace, blood small, nitrate negative, bilirubin is negative, urobilinogen 2.0, leukocyte esterase negative. RBC 123, WBC 0-2, bacteria rare. ASSESSMENT AND PLAN: In summary, Mr. Carroll is a 62-year-old male with a history of human immunodeficiency virus positive, CD4 count 174, end-stage renal disease, was admitted with fever, altered mental status, and found to have Listeria in the blood and urine and being treated for Listeria sepsis with low potassium and low bicarb and low magnesium and serum creatinine is 2.1. The 24-hour urine clearance about 23 mL. 1. Renal failure. Most likely patient has residual renal function about 23 mL and patient can be off hemodialysis at this time. We will try to hold hemodialysis in a.m. 2. Hypokalemia and metabolic acidosis. Rule out Fanconi syndrome. Supplement potassium as needed and we will give 40 mEq p.o. x 1 dose again and also we will give magnesium sulfate 2 g IV piggyback x 1 dose and we will increase the sodium bicarb 650 mg 2 tablets p.o. q. 4 hours. We will continue antibiotics as per ID recommendations and we will also check BMP, magnesium, and phosphorus level in a.m. We will hold hemodialysis in a.m. Discuss with the patient regarding holding the hemodialysis and agreed for the plan. Thank you for allowing me to participate in your patient's care. Lesley Jacob MD
[2017-05-15] MEDS: Ampicillin 2 GM in Sodium Chloride 0.9% 100 ML IVPB SCH ×2 (05:26→11:36)
[2017-05-15 07:07] LABS: HEMATOCRIT 25.3 % (42.0-52.0); MEAN CELL VOLUME 93.7 fL (80.0-105.0); MEAN CORPUSCULAR HEMOGLOBIN 32.6 pg (25.0-35.0); MEAN CORPUSCULAR HGB CONC 34.8 g/dl (31.0-37.0); MEAN PLATELET VOLUME 9.5 fl (7.0-11.0); RED CELL DISTRIBUTION WIDTH 13.8 % (11.5-14.5); WHITE BLOOD COUNT 5.8 10^3/ul (4.5-11.0)
[2017-05-15 07:40] LABS: ALB/GLOB RATIO 0.6 (1.1-1.8); BILIRUBIN,TOTAL 1.2 mg/dL (0.2-1.3); CALCIUM 7.5 mg/dL (8.4-10.5); TOTAL PROTEIN 6.2 g/dL (5.8-8.3)
[2017-05-15 08:02] VITALS: BP 132/66; PULSE 99; RESP 20; TEMP 98.3; O2SAT 97
[2017-05-15] MEDS: Multivitamin Vitamin B Complex (Nephro-Vite) Tab PO SCH (08:27)
[2017-05-15] MEDS ORDERED: Potassium Chloride 20 mEq ER Tab PO ONE ×2 (08:50→08:53)
[2017-05-15] MEDS ORDERED: Sodium Bicarbonate 8.4% 150 MEQ in Dextrose 5% In Water 1,000 ML IV SCH (09:15)
[2017-05-15] MEDS: Vancomycin 500mg in NS 500 MG/100 ML BAG IVPB SCH (09:27)
[2017-05-15 09:29] LABS: MAGNESIUM 1.8 mg/dL (1.7-2.2); PHOSPHOROUS 1.5 mg/dL (2.5-4.5)
--- NOTE | 2017-05-15 12:20 | CP.PCM.PN ---
Subjective - Date & Time of Evaluation Date of Evaluation: 05/15/17 Time of Evaluation: 12:19 - Subjective Subjective: pt seen and examined, follow up consult is dictated #[id number] supplement k+ as k PHos,or add neutrophos 1 packet po tid Objective - Vital Signs/Intake and Output Vital Signs (last 24 hours): Temp Pulse Resp BP Pulse Ox 98.3 F 99 H 20 132/66 97 05/15/17 08:02 05/15/17 08:02 05/15/17 08:02 05/15/17 08:02 05/15/17 08:02 Intake and Output: 05/15/17 05/15/17 06:59 18:59 Intake Total 1700 120 Output Total 1200 1000 Balance 500 -880 - Medications Medications: Current Medications Acetaminophen (Tylenol 325mg Tab) 650 mg PO Q6H PRN PRN Reason: Fever >100.4 F Last Admin: 05/11/17 16:14 Dose: 650 mg Famotidine (Pepcid) 40 mg PO [facility] Last Admin: 05/14/17 23:06 Dose: 40 mg Folic Acid (Folic Acid) 1 mg PO DAILY [facility] Last Admin: 05/15/17 09:24 Dose: 1 mg Home Med (Home Med) 1 unit PO [facility] Last Admin: 05/14/17 23:06 Dose: Not Given Vancomycin HCl (Vancomycin 500mg In Ns) 500 mg in 100 mls @ 200 mls/hr IVPB DAILY [facility] PRN Reason: Protocol Last Admin: 05/15/17 09:27 Dose: 200 mls/hr Ampicillin 2 gm/ Sodium (Chloride) 100 mls @ 200 mls/hr IVPB Q6 [facility] PRN Reason: Protocol Last Admin: 05/15/17 11:36 Dose: 200 mls/hr Sodium Bicarbonate 150 meq/ (Dextrose) 1,150 mls @ 70 mls/hr IV .[id number] [facility] Last Admin: 05/15/17 11:23 Dose: 70 mls/hr Lorazepam (Ativan) 0.5 mg PO Q4 PRN; Protocol PRN Reason: Anxiety Non-Formulary Medication (Emtricitabine [Emtriva]) 200 mg PO [facility] Last Admin: 05/14/17 12:33 Dose: Not Given Sodium Bicarbonate (Sodium Bicarbonate Tab) 1,300 mg PO Q6 [facility] Last Admin: 05/15/17 11:35 Dose: 1,300 mg Tamsulosin HCl (Flomax) 0.4 mg PO DAILY [facility] Last Admin: 05/15/17 09:24 Dose: 0.4 mg Tenofovir Disoproxil Fumarate (Viread) 300 mg PO MON [facility] Last Admin: 05/14/17 12:35 Dose: Not Given Thiamine HCl (Vitamin B1 Tab) 50 mg PO DAILY [facility] Last Admin: 05/15/17 09:24 Dose: 50 mg Vitamin B Complex/Vit C/Folic Acid (Nephro-Emili) 1 tab PO 0800 [facility] Last Admin: 05/15/17 08:27 Dose: 1 tab - Labs Labs: 05/15/17 06:30 05/15/17 06:30 PT 12.1 Seconds (9.9-11.8) H 05/09/17 20:28 INR 1.12 (0.93-1.08) H 05/09/17 20:28 APTT 30.3 Seconds (23.7-30.8) 05/09/17 20:28
[2017-05-15] MEDS ORDERED: Potassium & Sodium Phosphate PO SCH (12:30)
--- NOTE | 2017-05-15 15:08 | CP.PCM.DIS ---
<Jihan Walters - Last Filed: 05/15/17 15:04> Provider - Provider Date of Admission: 05/10/17 13:16 Attending physician: Radha Edgar MD Primary care physician: Aldo Spencer MD Consults: Consults Dr. Ochoa fever of unknown origin Dr. Jacob dialysis for T/R Dr. Davidson for r/o of meningitis Dr. Sanders for midline placement Please see MAR for further information. Time Spent in preparation of Discharge (in minutes): 30 Hospital Course - Lab Results Lab Results: Micro Results 05/13/17 13:10 Blood Blood Culture - Preliminary NO GROWTH AFTER 48 HOURS 05/13/17 12:50 Blood Blood Culture - Preliminary NO GROWTH AFTER 48 HOURS 05/11/17 13:20 Stool Stool Culture - Final NO SALMONELLA, SHIGELLA OR CAMPYLOBACTER ISOLATED. 05/11/17 15:38 Stool Ova and Parasite Concentrate Exam - Final 05/11/17 13:20 Stool C. difficile Antigen & Toxin A,B (M - Final Most Recent Lab Values WBC 5.8 10^3/ul (4.5-11.0) 05/15/17 06:30 RBC 2.70 10^6/uL (3.5-6.1) L 05/15/17 06:30 Hgb 8.8 gm/dL (14.0-18.0) L 05/15/17 06:30 Hct 25.3 % (42.0-52.0) L 05/15/17 06:30 MCV 93.7 fL (80.0-105.0) 05/15/17 06:30 MCH 32.6 pg (25.0-35.0) 05/15/17 06:30 MCHC 34.8 g/dl (31.0-37.0) 05/15/17 06:30 RDW 13.8 % (11.5-14.5) 05/15/17 06:30 Plt Count 153 10^3/uL (120.0-450.0) 05/15/17 06:30 MPV 9.5 fl (7.0-11.0) 05/15/17 06:30 Gran % 77.5 % (50.0-68.0) H 05/10/17 17:00 Lymph % (Auto) 7.2 % (22.0-35.0) L 05/10/17 17:00 Dodge % (Auto) 15.0 % (1.0-6.0) H 05/10/17 17:00 Eos % (Auto) 0.0 % (1.5-5.0) L 05/10/17 17:00 Baso % (Auto) 0.3 % (0.0-3.0) 05/10/17 17:00 Gran # 5.97 (1.4-6.5) 05/10/17 17:00 Lymph # 0.6 (1.2-3.4) L 05/10/17 17:00 Dodge # 1.2 (0.1-0.6) H 05/10/17 17:00 Eos # 0.0 (0.0-0.7) 05/10/17 17:00 Baso # 0.02 K/mm3 (0.0-2.0) 05/10/17 17:00 PT 12.1 Seconds (9.9-11.8) H 05/09/17 20:28 INR 1.12 (0.93-1.08) H 05/09/17 20:28 APTT 30.3 Seconds (23.7-30.8) 05/09/17 20:28 pO2 41 mm/Hg (30-55) 05/10/17 08:30 VBG pH 7.51 (7.32-7.43) H 05/10/17 08:30 VBG pCO2 28.0 (40-60) L 05/10/17 08:30 VBG HCO3 22.3 mmol/l (21-28) 05/10/17 08:30 VBG Total CO2 23.2 mmol.L (22-28) 05/10/17 08:30 VBG O2 Sat (Calc) 84.1 % (40-65) H 05/10/17 08:30 VBG Base Excess 0.4 mmol/L (0.0-2.0) 05/10/17 08:30 VBG Potassium 3.3 mmol/L (3.6-5.2) L 05/10/17 08:30 Sodium 135.0 mmol/L (132-148) 05/10/17 08:30 Chloride 105.0 mmol/L (98-107) 05/10/17 08:30 Glucose 140 mg/dl (75-110) H 05/10/17 08:30 Lactate 1.7 mmol/L (0.7-2.1) 05/10/17 08:30 FiO2 21.0 % 05/10/17 08:30 Sodium 137 mmol/L (132-148) 05/15/17 06:30 Potassium 3.4 mmol/L (3.6-5.0) L 05/15/17 12:38 Chloride 114 mmol/L (95-110) H 05/15/17 06:30 Carbon Dioxide 14 mmol/L (21-33) L 05/15/17 06:30 Anion Gap 12 (10-20) 05/15/17 06:30 BUN 17 mg/dL (7-21) 05/15/17 06:30 Creatinine 2.0 mg/dL (0.5-1.4) H 05/15/17 06:30 Est GFR ( Amer) 41 05/15/17 06:30 Est GFR (Non-Af Amer) 34 05/15/17 06:30 POC Glucose (mg/dL) 148 mg/dL (65-110) H 05/10/17 07:59 Random Glucose 106 mg/dL (70-110) 05/15/17 06:30 Lactic Acid 1.4 mmol/L (0.7-2.1) 05/11/17 00:45 Calcium 7.5 mg/dL (8.4-10.5) L 05/15/17 06:30 Phosphorus 1.5 mg/dL (2.5-4.5) L 05/15/17 06:30 Magnesium 1.8 mg/dL (1.7-2.2) 05/15/17 06:30 Total Bilirubin 1.2 mg/dL (0.2-1.3) 05/15/17 06:30 AST 51 U/L (15-59) 05/15/17 06:30 ALT 31 U/L (7-56) 05/15/17 06:30 Alkaline Phosphatase 89 U/L (38-133) 05/15/17 06:30 Total Creatine Kinase 322 U/L (35-230) H 05/10/17 20:00 CK-MB (CK-2) 1.6 ng/mL (0.0-3.6) 05/10/17 20:00 CK-MB (CK-2) % Cancelled 05/10/17 20:00 Troponin I 0.01 ng/mL 05/10/17 07:30 C-React Prot High Sens > 15.00 mg/L (1.00-3.00) H 05/12/17 07:35 Total Protein 6.2 g/dL (5.8-8.3) 05/15/17 06:30 Albumin 2.4 g/dL (3.0-4.8) L 05/15/17 06:30 Globulin 3.8 gm/dL 05/15/17 06:30 Albumin/Globulin Ratio 0.6 (1.1-1.8) L 05/15/17 06:30 Prostate Specific Ag 1.6 ng/mL (0.00-2.5) 05/12/17 07:00 TSH 3rd Generation 0.76 mIU/mL (0.46-4.68) 05/10/17 07:30 Venous Blood Potassium 3.3 mmol/L (3.6-5.2) L 05/10/17 08:30 Urine Color Yellow (YELLOW) 05/10/17 01:15 Urine Appearance Sl cloudy (CLEAR) 05/10/17 01:15 Urine pH 8.0 (4.7-8.0) 05/10/17 01:15 Ur Specific Wana 1.015 (1.005-1.035) 05/10/17 01:15 Urine Protein 100 mg/dL (<30 mg/dL) H 05/10/17 01:15 Urine Glucose (UA) Negative mg/dL (NEGATIVE) 05/10/17 01:15 Urine Ketones Trace mg/dL (NEGATIVE) H 05/10/17 01:15 Urine Blood Small (NEGATIVE) H 05/10/17 01:15 Urine Nitrate Negative (NEGATIVE) 05/10/17 01:15 Urine Bilirubin Negative (NEGATIVE) 05/10/17 01:15 Urine Urobilinogen 2.0 E.U./dL (<1 E.U./dL) H 05/10/17 01:15 Ur Leukocyte Esterase Negative Cathy/uL (NEGATIVE) 05/10/17 01:15 Urine RBC 1 - 3 /hpf (0-2) 05/10/17 01:15 Urine WBC 0 - 2 /hpf (0-6) 05/10/17 01:15 Ur Epithelial Cells 1 - 3 /hpf (0-5) 05/10/17 01:15 Urine Bacteria Rare (NEG) 05/10/17 01:15 U Random Total Protein 455 mg/L (50-250) H 05/14/17 08:00 Urine Collection Time 24 HOURS 05/14/17 08:00 Urine Total Volume 1900 mL (800-1400) H 05/14/17 08:00 Creatinine Clearance 23.0 ml/min (80-120) L 05/14/17 08:00 Ur Total Protein 24 Hr 865 mg/24 h (<150) H 05/14/17 08:00 Stool Leukocytes, Qual Negative (NEGATIVE) 05/11/17 13:20 Urine Opiates Screen Negative (NEGATIVE) 05/10/17 12:00 Urine Methadone Screen Negative (NEGATIVE) 05/10/17 12:00 Ur Barbiturates Screen Negative (NEGATIVE) 05/10/17 12:00 Ur Phencyclidine Scrn Negative (NEGATIVE) 05/10/17 12:00 Ur Amphetamines Screen Negative (NEGATIVE) 05/10/17 12:00 U Benzodiazepines Scrn Negative (NEGATIVE) 05/10/17 12:00 U Oth Cocaine Metabols Negative (NEGATIVE) 05/10/17 12:00 U Cannabinoids Screen Negative (NEGATIVE) 05/10/17 12:00 Alcohol, Quantitative < 10 mg/dL (0-10) 05/10/17 07:30 Absolute Lymphs (Flow) 571 Cells/mcL (850-3900) L 05/10/17 07:30 % CD4 Cells 30 Percent (30-61) 05/10/17 07:30 Absolute CD4 Count 174 Cells/mcL (490-1740) L 05/10/17 07:30 T-Help/Suppress Ratio 0.89 Ratio (0.86-5.00) 05/10/17 07:30 % CD8 Cells 34 Percent (12-42) 05/10/17 07:30 Absolute CD8 Count 195 Cells/mcL (180-1170) 05/10/17 07:30 T-Lymph Analys Comment See note 05/10/17 07:30 CMV IgG Ab >10.00 U/mL H 05/10/17 07:30 CMV IgM Ab 33.10 AU/mL H 05/10/17 07:30 Hepatitis A IgM Ab Negative (NEGATIVE) 05/10/17 07:30 Hep Bs Antigen Negative (NEGATIVE) 05/10/17 07:30 Hep B Core IgM Ab Negative (NEGATIVE) 05/10/17 07:30 Hepatitis C Antibody Reactive (NEGATIVE) H 05/10/17 07:30 Influenza Type A Ab 1:64 titer (<1:8) H 05/10/17 07:30 Influenza Type B Ab 1:8 titer (<1:8) H 05/10/17 07:30 - Hospital Course Hospital Course: 62 M with PMHx of ESRD on HD (T, Th) and HIV pressents with fever for past 4 days. Patient had a winessed fall, and fell on his knees and elbow. did not sustain head trauma or seizure. Patient admits to dehydration at the time of the witnessed fall. 05/10 patient was tachycardic and febrile. [employer] called for altered mental status and code sepsis. 05/11 patient started improving with a fever, but more alert. 05/12 renal diet was added. Patient put on levaquin. 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 Patient stable for Disharge, awaited insurance approval for antibiotic and discharge to home. Please see MAR for further details - Date & Time of H&P Date of H&P: 05/15/17 Time of H&P: 15:08 Discharge Exam - Head Exam Head Exam: ATRAUMATIC, NORMAL INSPECTION, NORMOCEPHALIC - Eye Exam Eye Exam: EOMI, Normal appearance - ENT Exam ENT Exam: Mucous Membranes Moist - Respiratory Exam Respiratory Exam: Clear to PA & Lateral, NORMAL BREATHING PATTERN. absent: Accessory Muscle Use, Respiratory Distress - Cardiovascular Exam Cardiovascular Exam: REGULAR RHYTHM. absent: Bradycardia, Tachycardia - GI/Abdominal Exam GI & Abdominal Exam: Normal Bowel Sounds, Soft. absent: Tenderness - Extremities Exam Extremities exam: full ROM - Neurological Exam Neurological exam: Alert, Oriented x3, Reflexes Normal - Psychiatric Exam Psychiatric exam: Flat Affect - Skin Skin Exam: Dry, Intact, Normal Color, Warm Discharge Plan - Discharge Medications Prescriptions: Ampicillin 2 gm IVPB Q6 #112 vial - Follow Up Plan Condition: GOOD Disposition: HOME/ ROUTINE Instructions: Fever in Adults (GEN), Peripherally Inserted Central Catheters and Midline Catheters (DC), Peripherally Inserted Central Catheters and Midline Catheters (GEN), Sepsis (GEN) Additional Instructions: 1. f/u with your primary doctor within 1 week 2. f/u with Infectious disease doctor within 1 week 3. continue IV antibiotics with ampicillin as directed (4 weeks) 4. Get weekly blood work done including: CBC, CMP, ESR, CRP 5. return to ED if condition worsens Referrals: Aldo Spencer MD [Primary Care Provider] - <Radha Edgar - Last Filed: 05/16/17 07:39> Provider - Provider Date of Admission: 05/10/17 13:16 Attending physician: Radha Edgar MD Primary care physician: Aldo Spencer MD Hospital Course - Lab Results Lab Results: Micro Results 05/13/17 13:10 Blood Blood Culture - Preliminary NO GROWTH AFTER 48 HOURS 05/13/17 12:50 Blood Blood Culture - Preliminary NO GROWTH AFTER 48 HOURS 05/11/17 13:20 Stool Stool Culture - Final NO SALMONELLA, SHIGELLA OR CAMPYLOBACTER ISOLATED. 05/11/17 15:38 Stool Ova and Parasite Concentrate Exam - Final 05/11/17 13:20 Stool C. difficile Antigen & Toxin A,B (M - Final Most Recent Lab Values WBC 5.8 10^3/ul (4.5-11.0) 05/15/17 06:30 RBC 2.70 10^6/uL (3.5-6.1) L 05/15/17 06:30 Hgb 8.8 gm/dL (14.0-18.0) L 05/15/17 06:30 Hct 25.3 % (42.0-52.0) L 05/15/17 06:30 MCV 93.7 fL (80.0-105.0) 05/15/17 06:30 MCH 32.6 pg (25.0-35.0) 05/15/17 06:30 MCHC 34.8 g/dl (31.0-37.0) 05/15/17 06:30 RDW 13.8 % (11.5-14.5) 05/15/17 06:30 Plt Count 153 10^3/uL (120.0-450.0) 05/15/17 06:30 MPV 9.5 fl (7.0-11.0) 05/15/17 06:30 Gran % 77.5 % (50.0-68.0) H 05/10/17 17:00 Lymph % (Auto) 7.2 % (22.0-35.0) L 05/10/17 17:00 Dodge % (Auto) 15.0 % (1.0-6.0) H 05/10/17 17:00 Eos % (Auto) 0.0 % (1.5-5.0) L 05/10/17 17:00 Baso % (Auto) 0.3 % (0.0-3.0) 05/10/17 17:00 Gran # 5.97 (1.4-6.5) 05/10/17 17:00 Lymph # 0.6 (1.2-3.4) L 05/10/17 17:00 Dodge # 1.2 (0.1-0.6) H 05/10/17 17:00 Eos # 0.0 (0.0-0.7) 05/10/17 17:00 Baso # 0.02 K/mm3 (0.0-2.0) 05/10/17 17:00 PT 12.1 Seconds (9.9-11.8) H 05/09/17 20:28 INR 1.12 (0.93-1.08) H 05/09/17 20:28 APTT 30.3 Seconds (23.7-30.8) 05/09/17 20:28 pO2 41 mm/Hg (30-55) 05/10/17 08:30 VBG pH 7.51 (7.32-7.43) H 05/10/17 08:30 VBG pCO2 28.0 (40-60) L 05/10/17 08:30 VBG HCO3 22.3 mmol/l (21-28) 05/10/17 08:30 VBG Total CO2 23.2 mmol.L (22-28) 05/10/17 08:30 VBG O2 Sat (Calc) 84.1 % (40-65) H 05/10/17 08:30 VBG Base Excess 0.4 mmol/L (0.0-2.0) 05/10/17 08:30 VBG Potassium 3.3 mmol/L (3.6-5.2) L 05/10/17 08:30 Sodium 135.0 mmol/L (132-148) 05/10/17 08:30 Chloride 105.0 mmol/L (98-107) 05/10/17 08:30 Glucose 140 mg/dl (75-110) H 05/10/17 08:30 Lactate 1.7 mmol/L (0.7-2.1) 05/10/17 08:30 FiO2 21.0 % 05/10/17 08:30 Sodium 137 mmol/L (132-148) 05/15/17 06:30 Potassium 3.4 mmol/L (3.6-5.0) L 05/15/17 12:38 Chloride 114 mmol/L (95-110) H 05/15/17 06:30 Carbon Dioxide 14 mmol/L (21-33) L 05/15/17 06:30 Anion Gap 12 (10-20) 05/15/17 06:30 BUN 17 mg/dL (7-21) 05/15/17 06:30 Creatinine 2.0 mg/dL (0.5-1.4) H 05/15/17 06:30 Est GFR ( Amer) 41 05/15/17 06:30 Est GFR (Non-Af Amer) 34 05/15/17 06:30 POC Glucose (mg/dL) 148 mg/dL (65-110) H 05/10/17 07:59 Random Glucose 106 mg/dL (70-110) 05/15/17 06:30 Lactic Acid 1.4 mmol/L (0.7-2.1) 05/11/17 00:45 Calcium 7.5 mg/dL (8.4-10.5) L 05/15/17 06:30 Phosphorus 1.5 mg/dL (2.5-4.5) L 05/15/17 06:30 Magnesium 1.8 mg/dL (1.7-2.2) 05/15/17 06:30 Total Bilirubin 1.2 mg/dL (0.2-1.3) 05/15/17 06:30 AST 51 U/L (15-59) 05/15/17 06:30 ALT 31 U/L (7-56) 05/15/17 06:30 Alkaline Phosphatase 89 U/L (38-133) 05/15/17 06:30 Total Creatine Kinase 322 U/L (35-230) H 05/10/17 20:00 CK-MB (CK-2) 1.6 ng/mL (0.0-3.6) 05/10/17 20:00 CK-MB (CK-2) % Cancelled 05/10/17 20:00 Troponin I 0.01 ng/mL 05/10/17 07:30 C-React Prot High Sens > 15.00 mg/L (1.00-3.00) H 05/12/17 07:35 Total Protein 6.2 g/dL (5.8-8.3) 05/15/17 06:30 Albumin 2.4 g/dL (3.0-4.8) L 05/15/17 06:30 Globulin 3.8 gm/dL 05/15/17 06:30 Albumin/Globulin Ratio 0.6 (1.1-1.8) L 05/15/17 06:30 Prostate Specific Ag 1.6 ng/mL (0.00-2.5) 05/12/17 07:00 TSH 3rd Generation 0.76 mIU/mL (0.46-4.68) 05/10/17 07:30 Venous Blood Potassium 3.3 mmol/L (3.6-5.2) L 05/10/17 08:30 Urine Color Yellow (YELLOW) 05/10/17 01:15 Urine Appearance Sl cloudy (CLEAR) 05/10/17 01:15 Urine pH 8.0 (4.7-8.0) 05/10/17 01:15 Ur Specific Wana 1.015 (1.005-1.035) 05/10/17 01:15 Urine Protein 100 mg/dL (<30 mg/dL) H 05/10/17 01:15 Urine Glucose (UA) Negative mg/dL (NEGATIVE) 05/10/17 01:15 Urine Ketones Trace mg/dL (NEGATIVE) H 05/10/17 01:15 Urine Blood Small (NEGATIVE) H 05/10/17 01:15 Urine Nitrate Negative (NEGATIVE) 05/10/17 01:15 Urine Bilirubin Negative (NEGATIVE) 05/10/17 01:15 Urine Urobilinogen 2.0 E.U./dL (<1 E.U./dL) H 05/10/17 01:15 Ur Leukocyte Esterase Negative Cathy/uL (NEGATIVE) 05/10/17 01:15 Urine RBC 1 - 3 /hpf (0-2) 05/10/17 01:15 Urine WBC 0 - 2 /hpf (0-6) 05/10/17 01:15 Ur Epithelial Cells 1 - 3 /hpf (0-5) 05/10/17 01:15 Urine Bacteria Rare (NEG) 05/10/17 01:15 U Random Total Protein 455 mg/L (50-250) H 05/14/17 08:00 Urine Collection Time 24 HOURS 05/14/17 08:00 Urine Total Volume 1900 mL (800-1400) H 05/14/17 08:00 Creatinine Clearance 23.0 ml/min (80-120) L 05/14/17 08:00 Ur Total Protein 24 Hr 865 mg/24 h (<150) H 05/14/17 08:00 Stool Leukocytes, Qual Negative (NEGATIVE) 05/11/17 13:20 Urine Opiates Screen Negative (NEGATIVE) 05/10/17 12:00 Urine Methadone Screen Negative (NEGATIVE) 05/10/17 12:00 Ur Barbiturates Screen Negative (NEGATIVE) 05/10/17 12:00 Ur Phencyclidine Scrn Negative (NEGATIVE) 05/10/17 12:00 Ur Amphetamines Screen Negative (NEGATIVE) 05/10/17 12:00 U Benzodiazepines Scrn Negative (NEGATIVE) 05/10/17 12:00 U Oth Cocaine Metabols Negative (NEGATIVE) 05/10/17 12:00 U Cannabinoids Screen Negative (NEGATIVE) 05/10/17 12:00 Alcohol, Quantitative < 10 mg/dL (0-10) 05/10/17 07:30 Absolute Lymphs (Flow) 571 Cells/mcL (850-3900) L 05/10/17 07:30 % CD4 Cells 30 Percent (30-61) 05/10/17 07:30 Absolute CD4 Count 174 Cells/mcL (490-1740) L 05/10/17 07:30 T-Help/Suppress Ratio 0.89 Ratio (0.86-5.00) 05/10/17 07:30 % CD8 Cells 34 Percent (12-42) 05/10/17 07:30 Absolute CD8 Count 195 Cells/mcL (180-1170) 05/10/17 07:30 T-Lymph Analys Comment See note 05/10/17 07:30 CMV IgG Ab >10.00 U/mL H 05/10/17 07:30 CMV IgM Ab 33.10 AU/mL H 05/10/17 07:30 Hepatitis A IgM Ab Negative (NEGATIVE) 05/10/17 07:30 Hep Bs Antigen Negative (NEGATIVE) 05/10/17 07:30 Hep B Core IgM Ab Negative (NEGATIVE) 05/10/17 07:30 Hepatitis C Antibody Reactive (NEGATIVE) H 05/10/17 07:30 Influenza Type A Ab 1:64 titer (<1:8) H 05/10/17 07:30 Influenza Type B Ab 1:8 titer (<1:8) H 05/10/17 07:30 Attending/Attestation - Attestation I have personally seen and examined this patient.: Yes I have fully participated in the care of the patient.: Yes I have reviewed all pertinent clinical information, including history, physical exam and plan: Yes Notes (Text): 05/16/17 07:30 Attending note to; Patient seen and examined with resident. Patient is a 62 year old male with PMH of HIV,ESRD on Hemodialysis, and alcohol abuse was admitted with change of mental status, was found to be septic , started on IV antibiotics vancomycin and zosyn. Also treated for alcohol withdrawal.Patient CT chest showed left lower lobe Pneumonia. Listeria is seen in the blood cultures at [facility]. Listeria is also seen here in urine culture as well in the initial blood cultures which were drawn at the time of admission. Treated with IV Ampicillin and Vancomycin. Repeat Culture is negative. ID Follow up is appreciated. Echo is negative for any endocarditis. Patient will be discharged home with IV ampicillin to complete 4 weeks. The patient follows up with nephrology Dr. Miranda for dialysis. Electrolyte imbalance; potassium, magnesium and phosphorus supplemented. Questionable tenofovir -induced Fanconi syndrome suspected. HIV; follow-up with infectious disease as outpatient. manager r d evaluation appreciated for outpatient antibiotics arrangement. Follow-up with PMD . Needs close nephrology/ID follow up. Diagnosis; Listeria bacteremia HIV End-stage renal disease on dialysis Alcohol abuse Electrolyte imbalance
--- NOTE | 2017-05-15 16:53 | CP.PCM.PN ---
Subjective - Date & Time of Evaluation Date of Evaluation: 05/15/17 Time of Evaluation: 15:00 - Subjective Subjective: Infectious Disease Follow Up: May 15, 2017 62 yo male presenting with fevers for the past 4 days prior to hospitalization. Temperature was as high as 103.0 F. He had a near syncopal episode on Sunday. The patient was ESRD on HD and a history of HIV on HAART medications. Diphtheroids seen in blood cultures at [facility]. Gram variable rods on one blood culture. Organism identified as Listeria. On Ampicillin for treatment. Can consider addition of Vancomycin as patient is ESRD on HD, but Vancomycin is not a first line drug for Listeria. Clinically much better today. Current CD4 count... this was 174 on a repeat check. Afebrile on Ampicillin. On Ampicillin for listeria treatment. No further complaints. Objective - Vital Signs/Intake and Output Vital Signs (last 24 hours): Temp Pulse Resp BP Pulse Ox 98.3 F 99 H 20 132/66 97 05/15/17 08:02 05/15/17 08:02 05/15/17 08:02 05/15/17 08:02 05/15/17 08:02 Intake and Output: 05/15/17 05/15/17 06:59 18:59 Intake Total 1700 1045 Output Total 1200 1000 Balance 500 45 - Labs Labs: 05/15/17 06:30 05/15/17 12:38 PT 12.1 Seconds (9.9-11.8) H 05/09/17 20:28 INR 1.12 (0.93-1.08) H 05/09/17 20:28 APTT 30.3 Seconds (23.7-30.8) 05/09/17 20:28 - Constitutional Appears: Non-toxic, No Acute Distress, Chronically Ill - Head Exam Head Exam: ATRAUMATIC, NORMOCEPHALIC - Eye Exam Eye Exam: EOMI, PERRL Pupil Exam: NORMAL ACCOMODATION, PERRL - ENT Exam ENT Exam: Mucous Membranes Moist, Normal External Ear Exam, TM's Normal Bilaterally - Neck Exam Neck Exam: Full ROM, Normal Inspection - Respiratory Exam Respiratory Exam: Clear to Ausculation Bilateral, NORMAL BREATHING PATTERN. absent: Rales, Rhonchi, Wheezes - Cardiovascular Exam Cardiovascular Exam: REGULAR RHYTHM, RRR, +S1, +S2 - GI/Abdominal Exam GI & Abdominal Exam: Soft, Normal Bowel Sounds. absent: Distended, Tenderness - Extremities Exam Extremities Exam: Full ROM, Normal Inspection - Neurological Exam Neurological Exam: Alert, Awake, CN II-XII Intact, Oriented x3 - Psychiatric Exam Psychiatric exam: Normal Affect, Normal Mood - Skin Skin Exam: Intact, Normal Color Assessment and Plan - Assessment and Plan (Free Text) Assessment: 62 yo male with persistent fevers in history of HIV and ESRD on HD. The patient is taking Viread, Sustiva, and Emtriva for HAART. He states he is compliant with HAART. Supportive care. Continue on IV antibiotics of Vancomcyin, Rocephin, and Flagyl at this time. Check CD4 and HIV Viral load. Carias cultures. Chest X-ray showed no acute disease. Possible UTI. CD4 would provide more guidance on possible sources of the patient's fever. Diphtheroids in blood cultures from [facility]. Gram Variable Rods in one blood culture here... noted gram positive cocci in urine culture. Listeria identified in blood and urine on cultures done yet. Listeria is seen in the blood cultures at [facility]. Listeria seen here in urine culture. No lumbar puncture done so cannot confirm whether listeria meningitis is an issue. Will start and continue with high dose Ampicillin. He may require up to four weeks of treatment with Ampicillin to cover for Listeria meningitis. Would still consider LP although the yield for diagnosing listeria meningitis at this point would be extremely low. LP at this point in time can only be used to rule in Listeria and NOT rule out. Chronic Kidney Disease Stage IV - Renal questioning on whether it is secondary to Tenofovir. This could be a possibility although the circumstances of how and the choice of antiretrovirals for the patient when he was started on this regimen is not clear to me and well as the baseline renal function at this time. Discussed this issue with patient and that he should follow up with his HIV physician. Thank you for allowing me to participate in the care of the patient, we will follow with you.
--- NOTE | 2017-05-16 04:59 | CON ---
DATE: The patient is located in room 363, bed #2. REQUESTED BY: Radha Edgar MD and Michaela Yun MD REASON FOR RENAL CONSULTATION: Listeria sepsis, end-stage renal disease, and hypertension and HIV positive. HISTORY OF PRESENT ILLNESS: Mr. Carroll is a 62-year-old male with HIV positive, renal failure on hemodialysis 2 times a week, who was admitted with fever and altered mental status and found to have Listeria sepsis, blood culture positive from the dialysis and also from the hospital with Listeria monocytogenes and also urine culture also positive for Listeria. The patient is now on antibiotics ampicillin IV q.6 h. The patient is being treated for possible meningitis due to Listeria for possible 4 weeks of IV antibiotics as per Infectious Disease note. The patient is now feeling better, not in any acute distress, slightly anxious. No chest pain, no palpitations. No fever, no cough. No abdominal pain, no nausea, vomiting, or diarrhea. The patient claims he has a very good urine output. PHYSICAL EXAMINATION: GENERAL: Mr. Carroll is a 62-year-old male moderately built, moderately nourished, not in distress. VITAL SIGNS: Blood pressure 132/66, pulse 99, respirations 20, temperature 98.3, saturation 97%. Height 5 feet 7 inches, weight is 163 pounds. HEENT: Pupils are normal, reactive to light and accommodation. Conjunctivae pink. Sclerae anicteric. Tongue is moist. NECK: Trachea is midline. CARDIOPULMONARY: Ruth at the fifth intercostal space, midclavicular line. S1 and S2 audible. No murmur or gallop. LUNGS: Symmetrical on both sides. Bilateral breath sounds present. Clear on auscultation. ABDOMEN: Normal in appearance, soft and tympanic. No guarding. No rigidity. No hepatosplenomegaly. CENTRAL NERVOUS SYSTEM: The patient is alert, awake, oriented x3. Nonfocal on examination. Cranial nerves II through XII grossly intact. Sensory and motor system is within normal limits. EXTREMITIES: No cyanosis. No clubbing. No edema. LABORATORY DATA: As of 05/15/2017, WBC 5.8, hemoglobin 8.8, hematocrit 25.3, platelets 153. Sodium 137, potassium 3.0, chloride 114, CO2 is 14, anion gap about 9, BUN 17, creatinine 2.0, and calcium 7.5, glucose is 106, phosphorus is 1.5, total bilirubin 1.2, magnesium 1.8. AST 51,ALT 31, alkaline phosphatase is 89, total protein is 6, albumin 2.4. As of 05/14/2017, 24-hour urine volume is 1900 and creatinine clearance is 23 ml/minute and T-cell count is 174 and PSA is 1.6 as of 05/12/2017. Blood culture as of 05/09/2017, was positive for Listeria monocytogenes and urine culture is also positive for Listeria monocytogenes as of 05/10/2017. Blood culture as of 05/10/2017, no growth of 5 days, and blood culture x2 as of 05/13/2017, negative after 48 hours. ASSESSMENT AND PLAN: In summary, Mr. Carroll is a 62-year-old elderly male with a history of HIV positive, renal failure on tenofovir with low potassium, low bicarbonate and low phosphorus, with good urine output and creatinine clearance about 23 mL. 1. Renal failure/chronic kidney disease stage IV. The patient may have retarded renal function, we will try to hold hemodialysis at this time with creatinine about 2 and clearance is 23 mL. 2. Anemia secondary to renal failure and HIV. 3. Hypokalemia. 4. Hypophosphatemia. 5. Hyperchloremic metabolic acidosis. Cannot rule out proximal renal tubular acidosis, cannot rule out Fanconi syndrome secondary to antiretroviral medications such as tenofovir. We will supplement phosphorous with Neutra-Phos one pocket p.o. t.i.d. and also supplement potassium as needed and IV sodium bicarbonate 3 amps at 70 mL per hour. We will hold hemodialysis today and advise to followup with his primary door opener for possible discontinuation of hemodialysis. We will followup with you. Thank you for allowing me to participate in your patient's care and continue IV antibiotics for Listeria sepsis, ampicillin 2 g q.6 h as per ID recommendation. Lesley Jacob MD [facility]
== END 2017-05-15 16:19 | disposition home or self-care (01) | DRG 871 ==
LOC: ED 19:20 → ERH 05-10 00:13 → 3RNO 05-10 02:07 → 2RNO 05-10 09:37 → OBSVTOIN 05-10 13:16 → 3RNO 05-13 14:00
PROVIDERS: ADMIT Internal Medicine; ATTEND Internal Medicine
PROC: 5A1D60Z (ICD-10-PCS; 2017-05-10)
PROC: 02HV33Z Insertion of Infusion Device into Superior Vena Cava, Percutaneous Approach (ICD-10-PCS; principal; 2017-05-14)
PROC: B54MZZA Ultrasonography of Right Upper Extremity Veins, Guidance (ICD-10-PCS; 2017-05-14)
DX: A32.7 Listerial sepsis (principal); N18.6 End stage renal disease; J18.9 Pneumonia, unspecified organism; N39.0 Urinary tract infection, site not specified; E87.2 Acidosis; F10.239 Alcohol dependence with withdrawal, unspecified; E72.09 Other disorders of amino-acid transport; T37.5X5A Adverse effect of antiviral drugs, initial encounter; E86.0 Dehydration; D63.1 Anemia in chronic kidney disease; Z21 Asymptomatic human immunodeficiency virus [HIV] infection status; E83.39 Other disorders of phosphorus metabolism; E87.6 Hypokalemia; E83.42 Hypomagnesemia; K80.20 Calculus of gallbladder without cholecystitis without obstruction; B18.2 Chronic viral hepatitis C; S01.81XA Laceration without foreign body of other part of head, initial encounter; S00.83XA Contusion of other part of head, initial encounter; W19.XXXA Unspecified fall, initial encounter; Y90.0 Blood alcohol level of less than 20 mg/100 ml; Y92.231 Patient bathroom in hospital as the place of occurrence of the external cause; Z99.2 Dependence on renal dialysis; Y93.E8 Activity, other personal hygiene